=== PATIENT | female | born 1975 | race Caucasian/White ===

== ENCOUNTER → 2020-09-17 11:22 | Outpatient (BNVA) | payer MEDICAID, SELFPAY | PROVIDERS: Visit Provider Advanced Practice Midwife ==

== ENCOUNTER 2020-11-22 08:14 | Outpatient (REF) | payer MEDICAID, SELFPAY ==
--- NOTE | ~2020-11-22 | MM_ITS ---
EXAMINATION: MM SCREENING DIGITAL BREAST TOMOSYNTHESIS, BILATERAL CLINICAL INFORMATION: Screening. Asymptomatic. Benign right biopsy 05/14/2018 (fibroadenoma). The lifetime risk of breast cancer based on the Tyrer-Cuzick Model is 7%. COMPARISON: Mammography: 10/31/2019, 10/26/2018, 05/19/2018, 04/30/2018, 10/23/2017; bilateral targeted ultrasound 10/26/2018. TECHNIQUE: Digital breast tomosynthesis is performed in both the craniocaudal and mediolateral oblique views along with computer-aided detection (CAD). Synthesized 2D images are generated from the tomosynthesis. FINDINGS: There are scattered areas of fibroglandular density (ACR BI-RADS breast composition Category b). Parenchymal pattern and fibronodular changes are similar to prior studies. No developing density. No architectural abnormality or abnormal calcifications. There is small stable nodule mid outer left breast on CC view and known fibroadenoma with biopsy clip marker upper outer quadrant right breast. The axilla and skin contours are unremarkable. MM/MM tomosynthesis screening BI IMPRESSION: No significant changes from prior exams. ASSESSMENT: BI-RADS 2: Benign RECOMMENDATION: Routine annual mammography screening. This patient's information was entered into a reminder system with a target due date for their next mammogram.
== END 2020-11-22 08:15 | disposition home or self-care (01) ==
LOC: HO.MAMMO 08:14
PROVIDERS: Visit Provider Internal Medicine
DX: Z12.31 Encounter for screening mammogram for malignant neoplasm of breast (principal)
CPT/HCPCS: 77063; 77067

== ENCOUNTER 2021-09-19 11:10 | Outpatient (REF) | payer MEDICAID, SELFPAY ==
[2021-09-20 03:21] LABS: CT PCR NOT DETECTED (Not Detect.); NG PCR NOT DETECTED (Not Detect.)
[2021-09-20 10:54] LABS: BV Int Neg Control Negative (Negative); BV Int Pos Control Positive (Positive)
[2021-09-24 12:06] LABS: HPV mRNA E6/E7 rflx Not Detected (Not Detected)
== END 2021-09-19 11:11 | disposition home or self-care (01) ==
LOC: HO.LAB 11:10
PROVIDERS: Visit Provider Advanced Practice Midwife
DX: Z01.419 Encounter for gynecological examination (general) (routine) without abnormal findings (principal); Z20.2 Contact with and (suspected) exposure to infections with a predominantly sexual mode of transmission; Z79.899 Other long term (current) drug therapy
CPT/HCPCS: 87480; 87491; 87510; 87591; 87624; 87660; 88142

== ENCOUNTER 2021-11-28 13:37 | Outpatient (REF) | payer MEDICAID, SELFPAY ==
--- NOTE | ~2021-11-28 | MM_ITS ---
EXAMINATION: MM SCREENING DIGITAL BREAST TOMOSYNTHESIS, BILATERAL CLINICAL INFORMATION: Screening. Asymptomatic. Previous benign right breast biopsy. The lifetime risk of breast cancer based on the Tyrer-Cuzick Model is 8.2%. COMPARISON: Mammography: November 22, 2020 and studies dating back to September 12, 2016 TECHNIQUE: Digital breast tomosynthesis is performed in both the craniocaudal and mediolateral oblique views along with computer-aided detection (CAD). Synthesized 2D images are generated from the tomosynthesis. FINDINGS: The breasts are extremely dense, which lowers the sensitivity of mammography (ACR BI-RADS breast composition Category d). There is a stable parenchymal pattern of the right breast. Within the medial aspect of the left breast approximately 7 cm from the nipple there is a 1 cm partially circumscribed density containing some calcifications for which further evaluation with spot compression view is recommended. MM/MM tomosynthesis screening BI IMPRESSION: Left breast density for further evaluation. ASSESSMENT: BI-RADS 0: Incomplete - Need Additional Imaging Evaluation RECOMMENDATION: 1. Additional views of the left breast 2. Targeted ultrasound if warranted after review of the additional views. 3. Radiology department staff will contact the patient for additional imaging. This patient's information was entered into a reminder system with a target due date for their next mammogram.
== END 2021-11-28 13:38 | disposition home or self-care (01) ==
LOC: HO.MAMMO 13:37
PROVIDERS: Visit Provider Internal Medicine
DX: Z12.31 Encounter for screening mammogram for malignant neoplasm of breast (principal)
CPT/HCPCS: 77063; 77067

== ENCOUNTER 2021-12-30 14:05 | Outpatient (REF) | payer MEDICAID, SELFPAY ==
--- NOTE | ~2021-12-30 | MM_ITS ---
EXAMINATION: MM DIAGNOSTIC DIGITAL BREAST TOMOSYNTHESIS, LEFT US BREAST TARGETED, LEFT CLINICAL INFORMATION: Density with calcifications. COMPARISON: Mammography: 11/28/2021 and studies dating back to 09/12/2016. TECHNIQUE: Digital breast tomosynthesis is performed. 2D images are generated from the tomosynthesis. The following views are obtained: Spot compression craniocaudal and mediolateral oblique projections as well as spot magnification craniocaudal and 90 degree mediolateral views. FINDINGS: The breasts are extremely dense, which lowers the sensitivity of mammography (ACR BI-RADS breast composition Category d). Additional views demonstrated a well-circumscribed 1 cm density about the medial aspect of the left breast with some overlying calcifications which do not layer on 90 degree mediolateral view. Targeted ultrasound evaluation of the left breast demonstrates at the 10 o'clock position 7 cm from nipple a well-circumscribed simple-appearing cyst without definite calcifications being identified within its wall or within the cyst itself. There is smooth back wall with increased sound transmission. The cyst is wider than it is tall. No internal vascularity is present. Six-month followup left breast mammography with magnification views is recommended to ensure stability of calcifications. Results are discussed with the patient at time of visit. MM/MM tomosynthesis added views L IMPRESSION: Left breast density corresponds to a cyst. I cannot definitely say that the calcifications lie within the cyst and therefore six-month followup left breast study with magnification views is recommended. ASSESSMENT: BI-RADS 3: Probably Benign RECOMMENDATION: Diagnostic mammography in 6 months. This patient's information was entered into a reminder system with a target due date for their next mammogram.
== END 2021-12-30 14:06 | disposition home or self-care (01) ==
LOC: HO.MAMMO 14:05
PROVIDERS: PCP Internal Medicine; Visit Provider Advanced Practice Midwife
DX: R92.2 Inconclusive mammogram (principal); R92.1 Mammographic calcification found on diagnostic imaging of breast
CPT/HCPCS: 76642; 77061; 77065

== ENCOUNTER 2022-08-07 13:00 | Outpatient (REF) | payer MEDICAID, SELFPAY ==
--- NOTE | ~2022-08-07 | MM_ITS ---
EXAMINATION: MM DIAGNOSTIC DIGITAL BREAST TOMOSYNTHESIS, LEFT CLINICAL INFORMATION: Short interval follow-up left breast calcifications. No known family history breast cancer. TC score 8%. COMPARISON: Prior breast imaging exams, most recent 12/30/2021. TECHNIQUE: Digital breast tomosynthesis is performed in both the craniocaudal and mediolateral oblique views along with computer-aided detection (CAD). Synthesized 2D images are generated from the tomosynthesis. Additional magnification left CC and magnification left ML views are obtained. FINDINGS: There are scattered areas of fibroglandular density (ACR BI-RADS breast composition Category b). Parenchymal pattern is similar to prior exam. There is a known cyst central inner left breast mid depth. No interval mass or architectural abnormality or developing density. The axilla and skin contours are unremarkable. Left breast calcifications less than 5 in number for follow-up are similar to prior exam. They will be reassessed again at time of annual bilateral mammography, due in 6 months. Results are provided to the patient at time of visit by the technologist. MM/MM tomosynthesis diagnostic LT IMPRESSION: There are no significant changes from prior study. ASSESSMENT: BI-RADS 3: Probably Benign RECOMMENDATION: Diagnostic mammography at time of annual bilateral mammography, due in 6 months. This patient's information was entered into a reminder system with a target due date for their next mammogram.
== END 2022-08-07 13:01 | disposition home or self-care (01) ==
LOC: HO.MAMMO 13:00
PROVIDERS: PCP Internal Medicine; Visit Provider Internal Medicine
DX: R92.8 Other abnormal and inconclusive findings on diagnostic imaging of breast (principal)
CPT/HCPCS: 77061; 77065

== ENCOUNTER 2022-12-01 16:03 | Outpatient (REF) | payer MEDICAID, SELFPAY ==
--- NOTE | ~2022-12-01 | XR_ITS ---
EXAMINATION: XR CHEST CLINICAL INFORMATION: Cough. COMPARISON: Chest radiographs dated 11/20/2015. TECHNIQUE: 2 views of the chest were obtained. FINDINGS: No significant abnormality is noted involving the heart, lungs, mediastinum, bony thorax or soft tissues. XR/XR chest 2V IMPRESSION: No acute cardiopulmonary process.
== END 2022-12-01 16:04 | disposition home or self-care (01) ==
LOC: HO.HHCX 16:03
PROVIDERS: Visit Provider Registered Nurse
DX: R05.3 Chronic cough (principal)
CPT/HCPCS: 71046

== ENCOUNTER 2023-02-11 10:32 | Outpatient (REF) | payer MEDICAID, SELFPAY ==
[2023-02-11 11:16] LABS: MANUAL DIFF FLAG NO
[2023-02-11 11:30] LABS: Basophils Absolute Auto 0.1 X10*3/uL (0.0-0.2); Basophils Percent Auto 0.9 % (0-2); Eosinophils Absolute Auto 0.1 X10*3/uL (0.0-0.4); Eosinophils Percent Auto 1.8 % (0-4); Hematocrit 35.7 % (37.0-47.0); Hemoglobin 11.8 g/dl (12.0-16.0); Imm Gran Abs Auto 0.03 X10*3/uL (0.00-0.03); Imm Gran Pct Auto 0.4 % (0.0-0.4); Lymphocytes Absolute Auto 1.9 X10*3/uL (1.2-4.9); Mean Corpuscular HGB Conc 33.1 g/dl (31.0-35.0); Mean Corpuscular Hemoglobin 29.1 pg (27.0-33.0); Mean Corpuscular Volume 87.9 fL (80.0-98.0); Mean Platelet Volume 10.5 fL (9.4-12.3); Monocytes Absolute Auto 0.7 X10*3/uL (0.1-1.2); Monocytes Percent Auto 8.8 % (2-11); Neutrophils Absolute Auto 4.8 x10*3/uL (2.0-8.3); Neutrophils Percent Auto 63.1 % (45-73); Platelet Count 318 X10*3/uL (160-400); Red Blood Count 4.06 X10*6/uL (4.20-5.50); Red Cell Distribution Width 13.6 % (11.0-16.0); White Blood Count 7.6 X10*3/uL (4.8-10.8)
[2023-02-11 11:44] LABS: Estimated Average Glucose 103 mg/dL; Hemoglobin A1c % 5.2 % (<6.0)
[2023-02-11 12:30] LABS: Alanine Aminotransferase 11 U/L (0-31); Alkaline Phosphatase 56 U/L (39-117); Anion Gap 9 (12-20); Aspartate Amino Transferase 13 U/L (5-31); Bilirubin Direct 0.2 mg/dL (0.0-0.5); Bilirubin Total 0.5 mg/dL (0.0-1.0); Blood Urea Nitrogen 10 mg/dL (9-16); Calcium 8.9 mg/dL (8.4-10.2); Carbon Dioxide 25 mmol/L (22-29); Chloride 108 mmol/L (96-108); Cholesterol 213 mg/dL (<200); Estimated Glomerular Filt Rate > 60; Glucose Random 92 mg/dL (60-115); HDL Cholesterol 83 mg/dL (>40); LDL Cholesterol Calculated 118 mg/dL (<100); Potassium 3.5 mmol/L (3.3-5.1); Sodium 138 mmol/L (135-145); Total Protein 7.5 g/dL (6.5-8.0); Triglycerides 61 mg/dL (<150)
[2023-02-11 12:35] LABS: Vitamin D 25-OH Total 32.6 ng/mL (>30)
[2023-02-11 12:48] LABS: Vitamin B12 446 pg/mL (200-900)
== END 2023-02-11 10:33 | disposition home or self-care (01) ==
LOC: HO.HHCL 10:32
PROVIDERS: Visit Provider Internal Medicine
DX: Z00.00 Encounter for general adult medical examination without abnormal findings (principal)
CPT/HCPCS: 36415; 80048; 80061; 80076; 82306; 82607; 83036; 85025

== ENCOUNTER 2023-02-11 12:07 | Outpatient (REF) | payer MEDICAID, SELFPAY ==
--- NOTE | ~2023-02-11 | MM_ITS ---
EXAMINATION: MM DIAGNOSTIC DIGITAL BREAST TOMOSYNTHESIS, BILATERAL CLINICAL INFORMATION: Follow-up several calcifications associated with an oval cyst in the left breast at the 10:00 axis seen on previous examinations to establish one-year stability. COMPARISON: Mammography: 08/07/2022, 12/30/2021 ultrasound left breast, 12/30/2021 mammography left breast, 11/28/2021, 11/22/2020, and dating back to 2018. TECHNIQUE: Digital breast tomosynthesis is performed in both the craniocaudal and mediolateral oblique views along with computer-aided detection (CAD). Synthesized 2D images are generated from the tomosynthesis. In addition, spot magnification views of the left breast were performed in the CC and ML projections. FINDINGS: The breasts are heterogeneously dense, which may obscure small masses (ACR BI-RADS breast composition Category c). There is a stable oval cyst in the 10:00 axis of the left breast with approximately 4 punctate associated calcifications. These were not visible on ultrasound. There are likely lie in the wall of the cyst.They do not meet biopsy threshold and they have a stable benign appearance, having been unchanged over one years time. There is a biopsy clip within a mass in the superior outer right breast, with histology yielding fibroadenoma. No suspicious grouped calcifications, suspicious masses, or suspicious areas of architectural distortion are identified in either breast. MM/MM tomosynthesis diagnostic BI IMPRESSION: There are no significant changes from prior study. No findings suspicious for malignancy in either breast Stable benign findings. Probably benign findings related to benign appearing calcifications overlying a cyst in the left breast at 10:00. These have been stable over one year. Recommend 1 year interval follow-up to left breast diagnostic mammogram assure stability to include magnification views of the left breast. This will establish two-year stability and benignity. ASSESSMENT: BI-RADS BI-RADS 3 - Probably benign finding(s) - 12 month follow-up suggested RECOMMENDATION: 12 month diagnostic follow up Results were provided to the patient at time of visit by the technologist. This patient's information was entered into a reminder system with a target due date for their next mammogram.
== END 2023-02-11 12:08 | disposition home or self-care (01) ==
LOC: HO.MAMMO 12:07
PROVIDERS: PCP Internal Medicine; Visit Provider Advanced Practice Midwife
DX: R92.8 Other abnormal and inconclusive findings on diagnostic imaging of breast (principal); R92.1 Mammographic calcification found on diagnostic imaging of breast
CPT/HCPCS: 77062; 77066

== ENCOUNTER → 2023-02-11 13:00 | Outpatient (BNV) | payer MEDICAID, SELFPAY | PROVIDERS: PCP Internal Medicine; Visit Provider Radiology Diagnostic Radiology | DX: R92.1 Mammographic calcification found on diagnostic imaging of breast (principal); N60.09 Solitary cyst of unspecified breast | CPT/HCPCS: 77062; 77066 ==

== ENCOUNTER 2023-03-18 12:49 | Outpatient (AMB) | payer MEDICAID, SELFPAY ==
--- NOTE | 2023-03-18 12:59 | A.OFFVIS_ITS ---
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 Intake Note: heavy and painful menses, a lot of blood clots, PCP let her know she is anemic Psychiatric Clinician Required: Yes Psychiatric Clinician Language: Macedonian Information Interpreted: non-clinical & clinical Vice President Regulatory: Vice President Regulatory Present (Yolande) Allergies ciprofloxacin [Cipro] Allergy (Unknown, Verified 03/18/23 13:03) Unknown tramadol Allergy (Unknown, Verified 03/18/23 13:03) Unknown meperidine [Demerol] Adverse Reaction (Unknown, Verified 03/18/23 13:03) vomiting Tramadol & Dietary Manage Prod Allergy (Unknown, Uncoded 03/18/23 13:03) Unknown Medication List - Last Reconciled 03/18/23 by Jessica Cardenas CNM albuterol sulfate 90 mcg/actuation 1 inh inhalation QID cholecalciferol (vitamin D3) 50 mcg PO DAILY diclofenac sodium 1% 2 grams topical fluticasone propion-salmeterol 115-21 mcg/actuation (Advair HFA) 2 puffs inhalation BID ibuprofen 800 mg PO TID ketoconazole 2% topical 2XW loratadine 10 mg PO DAILY lorazepam 0.5 mg PO DAILY PRN metronidazole 500 mg PO BID 7 days montelukast 10 mg PO DAILY topiramate (Topamax) 50 mg PO BID triamcinolone acetonide 0.1% topical BID Is last menstrual period known: Yes Last menstrual period: 03/13/23 Post menopausal: No 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 She is not having any problems at all she gets them every 6 month mammograms because of something in her breast but she just had 1 in February and it was fine. Her periods have been heavier with clots and she said her primary care provider told her she had anemia but the hemoglobin was 11 point something she told her t o take iron but she is not interested in taking it because it makes her constipated and she would rather do it with eating healthy. Her doctor gave her a cream for the rash on her breast on Thursday that is clotrimazole betamethasone cream she is using it twice a day and it is getting better. [facility] Medical History Back pain Fibromyalgia Depression Anxiety Asthma Vertigo Carpal tunnel syndrome Hx of migraines Surgical History (Updated 03/18/23 @ 13:05 by YEIMI Carter) Hx of appendectomy Hx of section History of tubal ligation History of ear surgery Family History Mother HTN (hypertension) Diabetes Breast cancer Father HTN (hypertension) Maternal Aunt Ovarian cancer Cervical cancer Social History Alcohol intake: never Gender identity: Female Female Reproductive History Menstrual Age of Menarche: 14 Duration of menses: 3-5 days Date of last menstrual period: 03/13/23 control method: other (tubal ligation) Total pregnancies: 3 Full term: 2 Number of Living Children: 2 Ab spontaneous: 1 Date of last pap smear: 09/20/21 (negative) Date of Mammogram: 02/11/23 Physical Exam Vital Signs: Last Vital Signs BP 122/76 03/18/23 13:00 BMI result Body Mass Index 29.9 Const General: healthy appearing, comfortable, no acute distress, well developed and alert Nutritional Appearance: average body habitus Orientation/consciousness: patient oriented x3 Limitations: no limitations HEENT Head: Yes normocephalic Neck Neck: Yes normal visual inspection Chest Other: Quarter-sized circular reddened rash on left breast at 9 to 10:00 o'clock Chest palpation & inspection: normal inspection of the chest Breast/axilla inspection: normal inspection of the breasts and normal inspection of the axillae Breast/axilla palpation: normal palpation of the breasts and normal palpation of the axillae Resp Effort & Inspection: normal respiratory effort GI Inspection: Yes normal to inspection, No Abdominal wall edema and No distended Palpation (GI): Soft to palpation and nontender Other: Vagina pink and moist cervix appears pink and nulliparous with clear mucus. Uterus is small anteverted mobile nontender good tone with Kegel adnexa not enlarged. General: Yes bladder normal to palpation External Female Exam: normal external appearance and normal appearance of the urethra Speculum Exam - Vagina: normal appearance of the vagina, normal palpation and normal vaginal discharge Speculum Exam - Cervix: normal appearance of the cervix, normal palpation and nontender Bimanual exam- vagina & uterus: normal bimanual exam, normal palpation, uterine size normal, bladder normal to palpation, consistency normal, normal palpation, uterine mobility normal, uterine shape normal, No Cervical tenderness present, non-tender and no cervical motion tenderness Bimanual Exam- Adnexa, other: normal adnexae, no masses, normal and No adnexal tenderness Neuro General: patient oriented x3 Assessment & Plan Assessment & Plan (1) Breast calcifications on mammogram: Code(s): R92.1 - Mammographic calcification found on diagnostic imaging of breast (2) Breast cancer screening other than mammogram: Code(s): Z12.39 - Encounter for other screening for malignant neoplasm of breast (3) Well woman exam with routine gynecological exam: Code(s): Z01.419 - Encounter for gynecological examination (general) (routine) without abnormal findings (4) Cervical cancer screening: Comment: pap done 09/19/21= negative with negative HPV Code(s): Z12.4 - Encounter for screening for malignant neoplasm of cervix Plan -----Discussed in this visit the following: healthy balanced diet, regular and consistent exercise, getting recommended health screens, doing the best she can for her particular health concerns, kegel exercises, pap smear screening and followup recommendations, mammography screening and SBE, normal changes in cycles in her life stage--- . Pap smear not done as it is not doing her last 1 was negative and she is not worried about any infections and has no symptoms. She does not want to take the iron in I did review the option of perhaps a Mirena IU S to make her periods less heavy and might even make them go way but she is not interested in anything that would have potentially any side effects she pretty much sticks to taking medicines only if it is absolutely absolutely necessary she would rather make changes to her diet and what she is doing to make her health better. I also told her about ablation surgery but that she would probably have to try the Mirena 1st for insurance to pay for. I gave her the brochure and she will read it but she is probably not interested in it. Coding Level of Care Code Est Pt Prev Care 40-64y(91013) Diagnoses Breast calcifications on mammogram R92.1 Breast cancer screening other than mammogram Z12.39 Well woman exam with routine gynecological exam Z01.419 Cervical cancer screening Z12.4
[2023-03-18 13:00] VITALS: BP 122/76; BMI 29.9
== END 2023-03-18 13:57 | disposition home or self-care (01) ==
LOC: HO.HWS 12:50
PROVIDERS: PCP Internal Medicine; Visit Provider Advanced Practice Midwife
DX: R92.1 Mammographic calcification found on diagnostic imaging of breast (principal); Z12.39 Encounter for other screening for malignant neoplasm of breast; Z01.419 Encounter for gynecological examination (general) (routine) without abnormal findings; Z12.4 Encounter for screening for malignant neoplasm of cervix
CPT/HCPCS: 99396

== ENCOUNTER → 2023-03-18 12:49 | Outpatient (BNVA) | payer MEDICAID, SELFPAY | PROVIDERS: PCP Internal Medicine; Visit Provider Advanced Practice Midwife | DX: Z01.419 Encounter for gynecological examination (general) (routine) without abnormal findings (principal); Z12.4 Encounter for screening for malignant neoplasm of cervix; Z12.39 Encounter for other screening for malignant neoplasm of breast; R92.1 Mammographic calcification found on diagnostic imaging of breast | CPT/HCPCS: 99396 ==

== ENCOUNTER 2024-02-16 10:24 | Outpatient (REF) | payer MEDICAID, SELFPAY ==
--- NOTE | ~2024-02-16 | MM_ITS ---
EXAMINATION: MM DIAGNOSTIC DIGITAL BREAST TOMOSYNTHESIS, BILATERAL CLINICAL INFORMATION: 1 year follow-up to establish two-year stability and benignity of left breast calcifications at the 10:00 axis, mid to posterior depth associated with a 9 mm cyst. Due for yearly. COMPARISON: Mammography: 02/11/2023, 08/07/2022, 12/30/2021(BI-RADS 3), 11/28/2021 (BI-RADS 0), 11/22/2020, and dating back to 2018. 12/30/2021 ultrasound left breast. TECHNIQUE: Digital breast tomosynthesis is performed in both the craniocaudal and mediolateral oblique views along with computer-aided detection (CAD). Synthesized 2D images are generated from the tomosynthesis. In addition to standard views, 2-D spot magnification left CC and LM views were obtained of the left breast. FINDINGS: The breasts are heterogeneously dense, which may obscure small masses (ACR BI-RADS breast composition Category c). Previously seen 9 mm oval cyst 10:00 axis of left breast with approximately 4 punctate associated calcifications is no longer definitely identified on the current exam. 3 remaining extremely faint punctate calcifications are present at the site of the previously identified cyst. There have been no aggressive changes over 2 years, and these calcifications are benign. Previously biopsied superior outer right breast mass, yielding fibroadenoma, with internal butterfly biopsy clip. This is benign. No suspicious grouped calcifications, suspicious masses, or areas of architectural distortion are identified in either breast. Parenchymal pattern is stable from the prior exams. No skin or axillary abnormalities. MM/MM tomosynthesis diagnostic BI IMPRESSION: There are no findings in either breast suspicious for malignancy. A few extremely faint punctate calcifications left breast 10:00 axis benign, having no aggressive changes over 2 years. The associated cyst is no longer identified. No further follow-up recommended. Recommend the patient resume routine annual screening mammography. ASSESSMENT: BI-RADS BI-RADS 2 - Benign Findings RECOMMENDATION: 1 year F/U Results were provided to the patient at time of visit by the technologist. This patient's information was entered into a reminder system with a target due date for their next mammogram. Electronically signed by: Fernando Canela MD 02/16/2024 12:06 PM EDT
== END 2024-02-16 10:25 | disposition home or self-care (01) ==
LOC: HO.MAMMO 10:24
PROVIDERS: PCP Internal Medicine; Visit Provider Internal Medicine
DX: R92.1 Mammographic calcification found on diagnostic imaging of breast (principal)
CPT/HCPCS: 77062; 77066

== ENCOUNTER → 2024-02-16 11:00 | Outpatient (BNV) | payer MEDICAID, SELFPAY | PROVIDERS: PCP Internal Medicine; Visit Provider Radiology Diagnostic Radiology | DX: R92.1 Mammographic calcification found on diagnostic imaging of breast (principal) | CPT/HCPCS: 77062; 77066 ==

== ENCOUNTER 2024-03-21 13:53 | Outpatient (AMB) | payer MEDICAID, SELFPAY ==
--- NOTE | 2024-03-21 13:58 | A.OFFVIS_ITS ---
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 Required: No Allergies ciprofloxacin [Cipro] Allergy (Unknown, Verified 03/18/23 13:03) Unknown tramadol Allergy (Unknown, Verified 03/18/23 13:03) Unknown meperidine [Demerol] Adverse Reaction (Unknown, Verified 03/18/23 13:03) vomiting Tramadol & Dietary Manage Prod Allergy (Unknown, Uncoded 03/18/23 13:03) Unknown Medication List - Last Reconciled 03/21/24 by Jessica Cardenas CNM albuterol sulfate 90 mcg/actuation 1 inh inhalation QID ibuprofen 800 mg PO TID norethindrone (contraceptive) 0.35 mg PO DAILY Is last menstrual period known: Yes Last menstrual period: 03/11/24 Post menopausal: No Patient : No HPI HPI SURGICAL ASSIST annual exam: Details: Patient is here for jig hand annual exam she had very heavy crampy periods and was investigating options last year and possibility of a Mirena IU S was discussed she was not interested in that. Please see previous discussions She sought a 2nd opinion at [facility]. They did a CT scan and ultrasound which documented multiple fibroids the largest of which was 3.7 cm. They also did a Pap smear which showed ANNA/S with negative HPV so she had a biopsy done 02/12/2024 that has just come back negative. She said that they wanted to take her uterus out but she did not want that so instead they gave her norethindrone control pills but she had not started them yet because she wanted to talk to me 1st as a 2nd opinion.. Her last periods started 03/11/2024 she has a tubal ligation for control. [facility] Medical History (Updated 03/21/24 @ 16:24 by Jessica Cardenas CNM) Back pain Fibromyalgia Depression Anxiety Asthma Vertigo Carpal tunnel syndrome Hx of migraines Surgical History (Updated 03/18/23 @ 13:05 by YEIMI Carter) Hx of appendectomy Hx of section History of tubal ligation History of ear surgery Family History Mother HTN (hypertension) Diabetes Breast cancer Father HTN (hypertension) Maternal Aunt Ovarian cancer Cervical cancer Social History Alcohol intake: never Patient : No Gender identity: Female Female Reproductive History Menstrual Age of Menarche: 14 Date of last menstrual period: 03/11/24 History of abnormal pap smear: No Physical Exam Vital Signs: Last Vital Signs BP 102/60 03/21/24 13:59 BMI result Body Mass Index 31.7 Const General: healthy appearing, comfortable, no acute distress, well developed and alert Nutritional Appearance: average body habitus Orientation/consciousness: patient oriented x3 Limitations: no limitations HEENT Head: Yes normocephalic Neck Neck: Yes normal visual inspection Chest Chest palpation & inspection: normal inspection of the chest Breast/axilla inspection: normal inspection of the breasts and normal inspection of the axillae Breast/axilla palpation: normal palpation of the breasts and normal palpation of the axillae Resp Effort & Inspection: normal respiratory effort GI Inspection: Yes normal to inspection, No Abdominal wall edema and No distended Palpation (GI): Soft to palpation and nontender Other: Vagina pink and moist clear healthy fertile type mucus cervix multiparous smooth healthy appearing uterus midposition not especially enlarged mobile nontender good tone with Kegel General: Yes bladder normal to palpation External Female Exam: normal external appearance and normal appearance of the urethra Speculum Exam - Vagina: normal appearance of the vagina, normal palpation and normal vaginal discharge Speculum Exam - Cervix: normal appearance of the cervix, normal palpation and nontender Bimanual exam- vagina & uterus: normal bimanual exam, normal palpation, uterine size normal, bladder normal to palpation, consistency normal, normal palpation, uterine mobility normal, uterine shape normal, No Cervical tenderness present, non-tender and no cervical motion tenderness Bimanual Exam- Adnexa, other: normal adnexae, no masses, normal and No adnexal tenderness Neuro General: patient oriented x3 Results Reviewed Results Reviewed: Name: Nadiya Mauricio Age/Sex: 46/F Attending: Jessica Cardenas CNM : 1975 Submitted by: Jessica Cardenas CNM Copies to: MR #: [id number] Status: DEP REF Collected: 09/19/21 Location: .LAB Received: 09/20/21 Interpretation Satisfactory for evaluation. Negative for intraepithelial lesion or malignancy. HPV mRNA E6/E7: NOT DETECTED This assay detects E6/E7 viral messenger RNA (mRNA) from 14 high-risk HPV types (16, 18, 31, 33, 35, 39, 45, 51, 52, 56, 58, 59, 66, 68) HPV testing performed by [facility], [place], [place]. See reference laboratory pion of the EMR for entire report. Clinical Information LMP: 08/29/21 Previous PAP test: 2017, WNL Material Received ThinPrep-Cervical Electronically Signed By: CHRISTOPHER Mcdowell (ASCP) 09/27/21 1338 The Pap Test is a screening procedure with the inherent possibility of both false negative and false positive results. Results should be interpreted in the context of historic and current clinical findings. Reliability of the Pap Test is enhanced by performing the test on a regular repetitive basis. Patient: Nadiya Mauricio Age/Sex: 46/F MR#: [id number] Page 1 of 1 Of visits and tests labs and ultrasounds and CT scans done at [facility]. She was seen there to evaluate her heavy periods and fibroids. She had ultrasounds and CT scans showing fibroids there was a discussion per the patient about hysterectomy but she did not not want that and they gave her control pills norethindrone but she has not started them until she reviews them with me today In addition she had Pap smear done in November and it showed TREY with negative HPV and she subsequently had a biopsy that was completely negative on 02/12/2024. Assessment & Plan Assessment & Plan (1) Cervical cancer screening: Comment: pap done 09/19/21= negative with negative HPV; 11/2023 Pap at [facility] w TREY- colpo/bx 02/12/2024 at [facility] negative. Code(s): Z12.4 - Encounter for screening for malignant neoplasm of cervix Category: Medical (2) Well woman exam with routine gynecological exam: Code(s): Z01.419 - Encounter for gynecological examination (general) (routine) without abnormal findings Category: Medical (3) Fibroids: Comment: Evaluated by ultrasound and CT scan at [facility] 2023 the largest is 3.7 cm., decision against surgery was made. 03/21/2024 patient will try norethindrone that was given to her by [facility], start with next menses. 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 She may need a Pap smear next year secondary to her last Pap smear this year at [facility] was TREY, though there was negative HPV her colposcopy was negative . She thinks she will start the control pills as I instructed. I shared that it would be best for her to double check with the providers who ordered pills so they know if they are helpful to her and she may get the refills there but she can also get refills with us but just be sure to bring the pill pack it with her so she know that that is what she is on if she starts the (no rethindrone 35 mg). I reviewed the patient's records that she brought with her in great detail and she said she evaluated the explanation of everything the control pills would shrink the fibroids but they may may her periods less painful and and less abundant and for that she will try them she was not interested in the Mirena I propose last year.. Coding Level of Care Code Est Pt Prev Care 40-64y(23455) Diagnoses Cervical cancer screening Z12.4 Well woman exam with routine gynecological exam Z01.419 Fibroids D21.9
[2024-03-21 13:59] VITALS: BP 102/60; BMI 31.7
== END 2024-03-21 15:53 | disposition home or self-care (01) ==
PROVIDERS: PCP Internal Medicine; Visit Provider Advanced Practice Midwife
DX: Z12.4 Encounter for screening for malignant neoplasm of cervix (principal); Z01.419 Encounter for gynecological examination (general) (routine) without abnormal findings; D21.9 Benign neoplasm of connective and other soft tissue, unspecified
CPT/HCPCS: 99396

== ENCOUNTER → 2024-03-21 13:53 | Outpatient (BNVA) | payer MEDICAID, SELFPAY | PROVIDERS: PCP Internal Medicine; Visit Provider Advanced Practice Midwife | DX: Z01.419 Encounter for gynecological examination (general) (routine) without abnormal findings (principal); D21.9 Benign neoplasm of connective and other soft tissue, unspecified | CPT/HCPCS: 99396 ==

== ENCOUNTER 2025-02-28 10:46 | Outpatient (REF) | payer MEDICAID, SELFPAY ==
--- OUTSIDE RECORDS SUMMARY | 2025-02-28 13:03 | XMS_ITS | Encounter Summary ---
Author Organization [employer] Address [address] [place] [address] [address] [place] [address] Care Team Providers Care Magazine Grinder Loader Name Role Phone Veronika Blanco MD Primary Care Provide r Reason for Visit * Reason Onset Date Comments Med Refill 10/11/2024 Encounter Details Date Type Department Care Team (Late st Contact Info) Description 10/11/2024 Refill [facility] [address] [place] [address] [facility] [address] [place] [address] Seborrheic dermatitis Social History Tobacco Use Types Packs/Day Years Used Date Smoking Tobacco: Former Cigarettes Passive Smoke Exposure: Never Smokeless Tobacco: Never Alcohol Use Standard Drinks/Week Comments Never 0 (1 standard drink = 0.6 oz pur e alcohol) Depression Answer Date Recorded Patient Health Questionnaire-9 Score 0 03/17/2024 Patient Health Questionnaire-9 Score 0 03/17/2024 Last PHQ-9: Questionnaire Data Not on file 1 05/17/2023 Housing Stability Answer Date Recorded What is your housing situation today? I have jose pruitt 09/02/[address] you li ve. Do you have problems with any of the following? None of the above 09/02/2023 Food Insecurity Answer Date Recorded Within the past 12 months, y ou worried that your food would run out before you got money to buy more: Never True 09/02/2023 Within the past 12 months,th e food you bought just didn't last and you didn't have enough money to get more: Never True Transportation Answer Date Recorded In the past 12 months, has l ack of transportation kept you from medical appts, meetings, work or from getting things needed for daily living? No 09/02/2023 Utilities Answer Date Recorded In the past 12 months, has t he electric, gas, oil or water company threatened to shut off services in your home? No 09/02/2023 Depression Answer Date Recorded Patient Health Questionnaire-2 Score 0 03/17/2024 Comments Unknown Sex and Gender Information Value Date Recorded Sex Assigned at Female 03/10/2022 10:21 AM EDT Legal Sex Female 10:21 AM EDT Gender Identity Female 03/10/2022 10:21 AM EDT Sexual Orientation Choose not to disclose 2021 10:21 AM EDT documented as of this encounter Plan of Treatment Upcoming Encounters Date Type Department Care Team (Late st Contact Info) Description 04/03/2025 2:45 PM EST Office Visit [facility] [address] [place] [address] Veronika Blanco MD [address] [place] [address] documented as of this encounter Visit Diagnoses Diagnosis Seborrheic dermatitis Unspecified seborrheic dermatitis documented in this encounter Additional Health Concerns Assessment Noted Time PHQ-9 Depression Total Score: 0 03/17/20 24 9:55 AM EST documented as of this encounter Care Teams Magazine Grinder Loader Relationship Specialty Start Date End Date Veronika Blanco MD [address] [place] [id number] PCP - General Family Medicine 02/28/20 documented as of this encounter
--- OUTSIDE RECORDS SUMMARY | 2025-02-28 13:04 | XMS_ITS | Encounter Summary ---
Author Organization [employer] Address [address] [place] [address] [address] [place] [address] Care Team Providers Care Snailer Name Role Phone Veronika Blanco MD Primary Care Provide r Reason for Visit * Reason Comments Med Refill Encounter Details Date Type Department Care Team ([facility] st Contact Info) Description 08/05/2023 Refill [facility] [address] [place], [place] [phone] Veronika Blanco MD [address] [place], [place] [phone] Seborrheic dermatitis Social History Tobacco Use Types Packs/Day Years Used Date Smoking Tobacco: Former Cigarettes Smokeless Tobacco: Never Alcohol Use Standard Drinks/Week Comments Never 0 (1 standard drink = 0.6 oz pur e alcohol) Depression Answer Date Recorded Patient Health Questionnaire-9 Score 0 09/24/2022 Housing Stability Answer Date Recorded What is your housing situation today? I have jose pruitt 03/11/[address] you li ve. Do you have problems with any of the following? None of the above 03/11/2023 Food Insecurity Answer Date Recorded Within the past 12 months, y ou worried that your food would run out before you got money to buy more: Never True 03/11/2023 Within the past 12 months,th e food you bought just didn't last and you didn't have enough money to get more: Never True 05/2022 Transportation Answer Date Recorded In the past 12 months, has l ack of transportation kept you from medical appts, meetings, work or from getting things needed for daily living? No 03/11/2023 Utilities Answer Date Recorded In the past 12 months, has t he electric, gas, oil or water company threatened to shut off services in your home? No 03/11/2023 Depression Answer Date Recorded Patient Health Questionnaire-2 Score 0 09/24/2022 Comments Unknown Sex and Gender Information Value [...] Description 04/03/2025 2:45 PM EST Office Visit [facility] [address] [place] [phone] Veronika Blanco MD [address] [place] [phone] documented as of this encounter Visit Diagnoses Diagnosis Seborrheic dermatitis Unspecified seborrheic dermatitis documented in this encounter Additional Health Concerns Assessment Noted Time PHQ-9 Depression Total Score: 0 09/25/19 23 10:07 AM EDT documented as of this encounter Care Teams Snailer Relationship Specialty Start Date End Date Veronika Blanco MD [address] [place] [phone] PCP - General Family Medicine 02/28/20 documented as of this encounter
--- OUTSIDE RECORDS SUMMARY | 2025-02-28 13:04 | XMS_ITS | Encounter Summary ---
Author Organization [employer] Address [address] [facility] [address] [place] [address] Care Team Providers Care Agile Developer Name Role Phone Veronika Blanco MD Primary Care Provide r Reason for Visit * Reason Onset Date Comments Med Refill 09/09/2023 Encounter Details Date Type Department Care Team (Late st Contact Info) Description 09/09/2023 Refill [facility] [address] [place], [place] [phone] Veronika Blanco MD [address] [place], [place] [phone] Social History Tobacco Use Types Packs/Day Years [...] Description 04/03/2025 2:45 PM EST Office Visit [facility] [address] [place] [phone] Veronika Blanco MD [address] [place] [phone] documented as of this encounter Visit Diagnoses Not on filedocumented in this encounter Additional Health Concerns Assessment Noted Time PHQ-9 Depression Total Score: 0 09/25/19 23 10:07 AM EDT documented as of this encounter Care Teams Agile Developer Relationship Specialty Start Date End Date Veronika Blanco MD [address] [place] [phone] PCP - General Family Medicine 02/28/20 documented as of this encounter
--- OUTSIDE RECORDS SUMMARY | 2025-02-28 13:04 | XMS_ITS | Clinical Summary ---
Author Organization [employer] Address [address] [facility] 7[address] [place] [address] Care Team Providers Care Ldr Nurse Name Role Phone Veronika Blanco MD Primary Care Provide r Allergies Active Allergy Reactions Criticality Noted Date Comments Ciprofloxacin 02/14/2019 Other reaction(s): shortness of breath, shortness of breath Meperidine 11/21/2011 Other reaction(s): vomiting Tramadol 02/14/2019 Other reaction(s): faints Medications DULoxetine (Cymbalta) [address] capsuleIndicati ons:Fibromyalgi a Take 1 capsule (30 mg) by mouth 2 times daily. Do not crush or chew. 60 capsule 1 07/30/19 23 Active famotidine (Pepcid) 20 MG tabletIndicatio ns:Heartburn Take 1 tablet (20 mg) by mouth 2 times daily. 60 tablet 11 09/25/19 23 Active EPINEPHrine (Epipen) 0.3 MG/0.3ML injection syringe INJECT INTO THE MUSCLE NEEDED 11/08/19 22 Active fluticasone (Flonase) 50 MCG/ACT nasal spray SHAKE LIQUID AND USE 2 SPRAYS IN EACH NOSTRIL EVERY DAY 08/25/19 23 Active cetirizine (ZyrTEC) 10 MG tabletIndicatio ns:Seasonal allergies Take 1 tablet (10 mg) by mouth in the morning. 30 tablet 2 10/30/19 23 Active benzonatate (Tessalon Perles) 100 MG capsuleIndicati ons:Chronic cough Take 1 capsule (100 mg) by mouth if needed in the morning, at noon, and at bedtime for cough. Do not crush or chew. 60 capsule 12/02/19 23 Active triamcinolone (Kenalog) 0.1 % creamIndication s:Seborrheic dermatitis APPLY TOPICALLY IN THE MORNING AND AT BEDTIME NEEDED FOR PAIN AND SWELLING 30 g 1 04/25/20 24 Active clotrimazole-be tamethasone (Lotrisone) creamIndication s:Rash and nonspecific skin eruption APPLY TOPICALLY TO THE AFFECTED AREA TWICE DAILY 45 g 2 10/13/19 25 Active Acetaminophen Extra Strength 500 MG tablet TAKE 2 TABLETS BY MOUTH EVERY 8 HOURS 40 tablet 1 10/13/19 25 Active triamcinolone (Kenalog) 0.1 % ointmentIndicat ions:Seborrheic dermatitis APPLY TOPICALLY TO THE AFFECTED AREA TWICE DAILY 30 g 1 10/13/19 25 Active ketoconazole (NIZOral) 2 % shampooIndicati ons:Seborrheic dermatitis APPLY TOPICALLY 2 TIMES A WEEK 240 mL 1 10/13/19 25 Active Diclofenac Sodium 1 % gelIndications: Right-sided chest pain Apply 1 Application topically 1 (one) time per week. APPLY 2 GRAMS TOPICALLY IF NEEDED IN THE MORNING AND AT BEDTIME FOR PAIN 100 g 1 10/13/19 25 Active fluocinolone ([place]-Smoothe) 0.01 % external oilIndications: Seborrheic dermatitis APPLY TOPICALLY TO SCALP TWICE A WEEK BEFORE WASHING HAIR (LEAVE ON SCALP OVERNIGHT) 118.28 mL 1 10/13/19 25 Active ibuprofen 800 MG tablet TAKE 1 TABLET BY MOUTH THREE TIMES DAILY WITH FOOD 30 tablet 10/13/19 25 Active naphazoline-phe niramine (Naphcon-A) 0.025-0.3 % ophthalmic solution INSTILL 2 DROPS IN AFFECTED EYE(S) TWICE DAILY NEEDED 15 mL 12/17/19 25 Active albuterol (2.5 MG/3ML) 0.083% nebulizer solutionIndicat ions:Moderate persistent asthma with acute exacerbation USE 1 VIAL VIA NEBULIZER EVERY 6 HOURS NEEDED FOR WHEEZING OR SHORTNESS OF BREATH 90 mL 2 02/21/20 25 Active albuterol (Ventolin HFA) 108 (90 Base) MCG/ACT inhalerIndicati ons:Moderate persistent asthma with acute exacerbation INHALE 1 TO 2 PUFFS BY MOUTH EVERY 4 TO 6 HOURS NEEDED 18 g 1 02/21/20 25 Active montelukast (Singulair) 10 MG tabletIndicatio ns:Moderate persistent asthma with acute exacerbation TAKE 1 TABLET BY MOUTH EVERY EVENING 90 tablet 1 02/21/20 Active fluticasone-donya meterol (Advair) 230-21 MCG/ACT inhalerIndicati ons:Moderate persistent asthma with acute exacerbation Inhale 2 puffs in the morning and at bedtime. Rinse mouth with water after use to reduce aftertaste and incidence of candidiasis. Do not swallow. 12 g 11 02/21/20 25 2025 Active Advair HFA 115-21 MCG/ACT inhaler Inhale 2 puffs 2 times daily. 07/19/19 23 2024 Discontinued montelukast (Singulair) 10 MG tablet TAKE 1 TABLET BY MOUTH EVERY EVENING 90 tablet 1 08/19/19 24 2024 Discontinued(R eorder (will not trigger notification to Pharmacy)) albuterol (2.5 MG/3ML) 0.083% nebulizer solution USE 1 VIAL VIA NEBULIZER EVERY 6 HOURS NEEDED FOR WHEEZING OR SHORTNESS OF BREATH 90 mL 2 10/13/19 25 2024 Discontinued(R eorder (will not trigger notification to Pharmacy)) albuterol (Ventolin HFA) 108 (90 Base) MCG/ACT inhaler INHALE 1 TO 2 PUFFS BY MOUTH EVERY 4 TO 6 HOURS NEEDED 18 g 1 10/13/19 25 2024 Discontinued(R eorder (will not trigger notification to Pharmacy)) predniSONE (Deltasone) 20 MG tabletIndicatio ns:Moderate persistent asthma with acute exacerbation Take 2 tablets (40 mg) by mouth Once per day for 5 days. 10 tablet 02/21/20 25 2024 Active Problems Problem Noted Date Diagnosed Date Stress incontinence of urine 02/20/2025 Assessment & Plan (02/20/2025 9:42 AM EDT): I will prescribe for patient pull-ups size large I will refer her to urology Fibroid uterus 02/20/2025 Assessment & Plan (02/20/2025 9:42 AM EDT): Patient is asking to be referred to another gynecology office for evaluation and treatment Rash and nonspecific skin eruption 03/13/2023 Iron deficiency anemia 03/13/2023 Metrorrhagia 03/13/2023 Assessment & Plan (03/17/2024 1:07 PM EST): Patient will start norethidrone daily, side effects where discuss Continue to follow up with [facility] Assessment & Plan (09/10/2023 4:21 PM EDT): Referral to [facility] done Assessment & Plan (03/13/2023 11:49 AM EDT): F/u with [facility] Generalized abdominal pain 12/16/2022 Low vision 12/16/2022 Health care maintenance 12/16/2022 Colon cancer screening 12/16/2022 Cholesteatoma 09/24/2022 Plantar fasciitis 09/24/2022 Snoring 09/24/2022 Mixed anxiety and depressive disorder 09/24/2022 Moderate persistent asthma with acute exacerbati on 09/24/2022 Assessment & Plan (02/20/2025 9:43 AM EDT): Extensive counseling done about avoiding asthma triggers I will refill for her her albuterol I will go up on her albuterol to 230/21 mcg/ACT I will prescribe again for her montelukast 10 mg daily I will prescribe for patient prednisone 40 mg for 5 days, I advised if symptoms persist or worsen to come for evaluation to the walk-in clinic Assessment & Plan (03/17/2024 1:06 PM EST): [place] c/w same interventions Heartburn 09/24/2022 Assessment & Plan (09/24/2022 3:08 PM EDT): I advise patient to avoid NSAIDs, spicy and acid food, I advise to eat at the same time every day, I advise to elevate the head of the bed and take medications as prescribe Seasonal allergies 09/24/2022 Chronic low back pain 07/28/2022 Moderate persistent asthma 05/01/2022 Depression 05/01/2022 Anxiety 05/01/2022 Fibromyalgia 05/01/2022 Assessment & Plan (03/17/2024 1:07 PM EST): Patient was educated about multidisciplinary approach for her condition, it was advise cardiovascular exercise, maintain hydration, treat anxiety/depression and take medications as directed Assessment & Plan (09/10/2023 4:21 PM EDT): Patient was educated about multidisciplinary approach for her condition, it was advise cardiovascular exercise, maintain hydration, treat anxiety/depression and take medications as directed Assessment & Plan (09/24/2022 3:08 PM EDT): Patient was educated about multidisciplinary approach for her condition, it was advise cardiovascular exercise, maintain hydration, treat anxiety/depression and take medications as directed Nonintractable chronic migraine 05/01/2022 Vertigo 05/01/2022 Mild persistent asthma 07/09/2015 Assessment & Plan (09/10/2023 4:20 PM EDT): Patient educated to avoid asthma triggers Refills done Seborrheic dermatitis 07/09/2015 Carpal tunnel syndrome 02/11/2013 Asthma 05/11/1959 Migraine 05/11/1959 Encounters Date Type Department Care Team Description 02/20/2025 9:15 AM EDT Telemedicine [facility] [address] [place] [address] Veronika Blanco MD Dietary counseling; Exercise counseling; Moderate persistent asthma with acute exacerbation; Stress incontinence of urine; Uterine leiomyoma, unspecified location 02/20/2025 Travel 02/18/2025 Telephone [facility] [address] [place] [address] Veronika Blanco MD Chart Prep 02/13/2025 Travel 01/19/2025 Telephone [facility] [address] [place] [address] Veronika Blanco MD NOV RECALL 12/16/2024 Refill [facility] [address] [place] [address] [place], [place], 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 purified surface antigen ) 01/23/2012 Influenza, seasonal, injectable, preservative fr ee 01/03/2016,03/01/2015 Pneumococcal Polysaccharide PPSV23 07/11/2010 Pneumococcal, Unspecified 07/11/2010 TD (adult), 2 Lf tetanus tox oid, preservative free, adsorbed 01/21/2006 Tdap 05/17/2014 Social History Tobacco Use Types Packs/Day Years Used Date Smoking Tobacco: Former Cigarettes Passive Smoke Exposure: Never Smokeless Tobacco: Never Tobacco Cessation:Counseling Given: Not Answered Alcohol Use Standard Drinks/Week Comments Never 0 (1 standard drink = 0.6 oz pur e alcohol) Depression Answer Date Recorded Patient Health Questionnaire-9 Score 0 02/20/2025 Patient Health Questionnaire-9 Score 0 02/20/2025 Last PHQ-9: Questionnaire Data Not on file 1 Housing Stability Answer Date Recorded What is [...] Date Recorded Patient Health Questionnaire-2 Score 0 02/20/2025 Comments Unknown Sex and Gender Information Value Date Recorded Sex Assigned at Female 03/10/2022 10:21 AM EDT Legal Sex Female 10:21 AM EDT Gender Identity Female 03/10/2022 10:21 AM EDT Sexual Orientation Choose not to disclose 2021 10:21 AM EDT Last Filed Vital Signs Vital Sign Reading Time Taken Comments Blood Pressure 115/67 03/17/2024 9:54 AM EST Pulse 75 03/17/2024 9:54 AM EST Temperature 37.1 C (98.8 F) 03/17/2024 9:54 AM EST Respiratory Rate 20 03/17/2024 9:54 AM EST Oxygen Saturation 98% 03/17/2024 9:54 AM EST Inhaled Oxygen Concentration - - Weight 76 kg (167 lb 9.6 oz) 03/17/2024 9:54 AM EST Height 154.9 cm (5' 1 ) 03/17/2024 9:54 AM EST Body Mass Index 31.67 03/17/2024 9:54 AM EST Plan of Treatment Upcoming Encounters Date Type Department Care Team (Late st Contact Info) Description 04/03/2025 2:45 PM EST Office Visit [facility] [address] [place] [address] Veronika Blanco MD [address] [place] [address] Health Maintenance Due Date Last Done Comments CT Colonography 1977 Colonoscopy 1977 Colorectal Cancer Screening 1977 FIT DNA/Cologuard 1977 FIT 1977 FOBT 1977 Sigmoidoscopy 1977 Disability Screening 1977 Family Planning (PISQ) 1992 Hepatitis C Screening 1995 Hepatitis B Vaccines (1 of 3 - 19+ 3-dose series) 1996 Pneumococcal Vaccine: Pediatrics (0 to 5 Years) and At-Risk Patients (6 to 49) Years (2 of 2 - PCV) 07/12/2011 07/11/2010, 07/11/2010 DTaP/Tdap/Td Vaccines (2 - Td or Tdap) 05/17/2024 05/17/2014, 01/21/2006 SDOH Screening 09/01/2024 09/02/2023 COVID-19 Vaccine (2 - season) 2025 11/17/2020 Influenza Vaccine (#1) 2025 9, 01/25/2017, 01/03/2016, Additional history exists Mammogram 02/15/2025 02/16/2024, 08/2022, 08/07/2022, Additional history exists Tobacco Screening 03/17/2025 03/17/2024 Alcohol/Substance Use Screening 02/20/2026 02/20/2025 Depression Screening 02/20/2026 02/20/2025, 02/21/20 25 Zoster Vaccines (1 of 2) 2027 Cervical Cancer Screening 09/20/2027 HPV/Cotest 09/20/2027 09/19/2022 Pap Smear 09/20/2027 09/19/2022 RSV Patients and Patients Aged 60 years or older (1 - 1-dose 75+ series) 2052 HIV Screening Completed 06/01/2020 HIB Vaccines Aged Out No longer eligi ble based on patient's age to complete this topic HPV Vaccines Aged Out No longer eligi ble based on patient's age to complete this topic Hepatitis A Vaccines Aged Out No long er eligible based on patient's age to complete this topic IPV Vaccines Aged Out No longer eligi ble based on patient's age to complete this topic Meningococcal B Vaccine Aged Out No l onger eligible based on patient's age to complete this topic Meningococcal Vaccine Aged Out No adi mitchell eligible based on patient's age to complete this topic RSV under 20 months Aged Out No longe r eligible based on patient's age to complete this topic Rotavirus Vaccines Aged Out No longer eligible based on patient's age to complete this topic Procedures Procedure Name Priority Date/Time Associated Diagnosis Comments BI MAMMOGRAM DIAGNOSTIC TOMOSYNTHESIS BILATERAL Routine 02/16/2024 10:35 AM EDT HM PAP/HPV Routine 09/19/2022 HIV 1/2 ANTIGEN/ANTIBODY, FOURTH GENERATION W/RFL Routine 06/01/2020 10:32 AM EST from Last 3 Months or Most Recently Relevant to Health Maintenance Results * BI Mammogram Diagnostic Tomosynthesis Bilateral (02/16/2024 10:35 AM EDT) Anatomical Region Laterality Modality Breast Bilateral Mammography 02/16/2024 10:3 5 AM EDT Narrative 02/16/2024 12:09 PM EDT [facility] [address] [place] [address] Mammography Report Signed Patient: Nadiya Mccrary MR#: [id number] : 1975 Acct:[id number] Age/Sex: 48 / F ADM Date: 02/16/24 Loc: HO.MAMMO Attending Dr: Veronika Wilkerson MD Ordering Physician: Veronika Blanco MD Results: 2Benign Findings Date of Service: 02/16/24 Follow Up: 1 Year From [facility] Mammogram Procedure(s): MM tomosynthesis diagnostic BI Accession Number(s): [id number] cc: Veronika Blanco MD EXAMINATION: MM DIAGNOSTIC DIGITAL BREAST TOMOSYNTHESIS, BILATERAL CLINICAL INFORMATION: 1 year follow-up to establish two-year stability and benignity of left breast calcifications at the 10:00 axis, mid to posterior depth associated with a 9 mm cyst. Due for yearly. COMPARISON: Mammography: 02/11/2023, 08/07/2022, 12/30/2021(BI-RADS 3), 11/28/2021 (BI-RADS 0), 11/22/2020, and dating back to 2018. 12/30/2021 ultrasound left breast. TECHNIQUE: Digital breast tomosynthesis is performed in both the craniocaudal and mediolateral oblique views along with computer-aided detection (CAD). Synthesized 2D images are generated from the tomosynthesis. In addition to standard views, 2-D spot magnification left CC and LM views were obtained of the left breast. FINDINGS: The breasts are heterogeneously dense, which may obscure small masses (ACR BI-RADS breast composition Category c). Previously seen 9 mm oval cyst 10:00 axis of left breast with approximately 4 punctate associated calcifications is no longer definitely identified on the current exam. 3 remaining extremely faint punctate calcifications are present at the site of the previously identified cyst. There have been no aggressive changes over 2 years, and these calcifications are benign. Previously biopsied superior outer right breast mass, yielding fibroadenoma, with internal butterfly biopsy clip. This is benign. No suspicious grouped calcifications, suspicious masses, or areas of architectural distortion are identified in either breast. Parenchymal pattern is stable from the prior exams. No skin or axillary abnormalities. MM/MM tomosynthesis diagnostic BI IMPRESSION: There are no findings in either breast suspicious for malignancy. A few extremely faint punctate calcifications left breast 10:00 axis benign, having no aggressive changes over 2 years. The associated cyst is no longer identified. No further follow-up recommended. Recommend the patient resume routine annual screening mammography. ASSESSMENT: BI-RADS BI-RADS 2 - Benign Findings RECOMMENDATION: 1 year F/U Results were provided to the patient at time of visit by the technologist. This patient's information was entered into a reminder system with a target due date for their next mammogram. 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 [address] Mammography Report Signed Patient: Marie Mccrary#: [id number] : 1975Acct:[id number] Age/Sex: 48 / FADM Date: 02/16/24 Loc: HO.MAMMO Attending Dr: Veronika Wilkerson MD Ordering Physician: Veronika Blanco MDResults: 2Benign Findings Date of Service: 02/16/24Follow Up: 1 Year From Orig inal Mammogram Procedure(s): MM tomosynthesis diagnostic BI Accession Number(s): [id number] cc: Veronika Blanco MD EXAMINATION: MM DIAGNOSTIC DIGITAL BREAST TOMOSYNTHESIS, BILATERAL CLINICAL INFORMATION: 1 year follow-up to establish two-year stability and benignity of left breast calcifications at the 10:00 axis, mid to posterior depth associated with a 9 mm cyst. Due for yearly. COMPARISON: Mammography: 02/11/2023, 08/07/2022, 12/30/2021(BI-RADS 3), 11/28/2021 (BI-RADS 0), 11/22/2020, and dating back to 2018. 12/30/2021 ultrasound left breast. TECHNIQUE: Digital breast tomosynthesis is performed in both the craniocaudal and mediolateral oblique views along with computer-aided detection (CAD). Synthesized 2D images are generated from the tomosynthesis. In addition to standard views, 2-D spot magnification left CC and LM views were obtained of the left breast. FINDINGS: The breasts are heterogeneously dense, which may obscure small masses (ACR BI-RADS breast composition Category c). Previously seen 9 mm oval cyst 10:00 axis of left breast with approximately 4 punctate associated calcifications is no longer definitely identified on the current exam. 3 remaining extremely faint punctate calcifications are present at the site of the previously identified cyst. There have been no aggressive changes over 2 years, and these calcifications are benign. Previously biopsied superior outer right breast mass, yielding fibroadenoma, with internal butterfly biopsy clip. This is benign. No suspicious grouped calcifications, suspicious masses, or areas of architectural distortion are identified in either breast. Parenchymal pattern is stable from the prior exams. No skin or axillary abnormalities. MM/MM tomosynthesis diagnostic BI IMPRESSION: There are no findings in either breast suspicious for malignancy. A few extremely faint punctate calcifications left breast 10:00 axis benign, having no aggressive changes over 2 years. The associated cyst is no longer identified. No further follow-up recommended. Recommend the patient resume routine annual screening mammography. ASSESSMENT: BI-RADS BI-RADS 2 - Benign Findings RECOMMENDATION: 1 year F/U Results were provided to the patient at time of visit by the technologist. This patient's information was entered into a reminder system with a target due date for their next mammogram. Electronically signed by: Fernando Canela MD 02/16/2024 12:06 PM EDT Dictated By: Fernando Canela MD Signed By: <Electronically signed by Fernando Canela MD in OV> 02/16/24 1206 DD/ 1035 TD/TT: 02/16/24 1054 Infantry Senior Sergeant: Veronika Wilkerson MD IMG BI PROCEDURES [place] [facility]yn Result - Final * Hm Pap Smear (09/19/2022) Pap Negative for intraephithelial lesion or malignancy Negative for intraephithelial lesion or malignancy, Other [facility] HPV Undetected [facility] 09/19/2022 Historical Provider HEALTH MAINTENANCE Final Result [facility] [address] [place] [phone] * HIV 1/2 ANTIGEN/ANTIBODY,FOURTH GENERATION W/RFL (06/01/2020 10:32 AM EST) HIV-1/2 ANTIGEN AND ANTIBODIES, 4TH GENERATION W/ REFLEX NON-REACT VERONICA NON-REACT VERONICA [facility] Comment: HIV-1 antigen and HIV-1/HIV-2 antibodies were not detected. There is no laboratory evidence of HIV infection. PLEASE NOTE: This information has been disclosed to you from records whose confidentiality may be protected by state law. If your state requires such protection, then the state law prohibits you from making any further disclosure of the information without the specific written consent of the person to whom it pertains, or as otherwise permitted by law. A general authorization for the release of medical or other information is NOT sufficient for this purpose. For additional information please refer to http://[email or web address] [email or web address]/faq/LJF914 (This link is being provided for informational/ educational purposes only.) The performance of this assay has not been clinically validated in patients less than 2 years old. 06/01/2020 10:3 2 AM EST us Veronika Wilkerson MD LAB BLOOD ORDERABLES Final Result [facility] [address] [place] [address], from Last 3 Months or Most Recently Relevant to Health Maintenance Insurance HSN FULL [facility] C3 Care Teams Ldr Nurse Relationship Specialty Start Date End Date Veronika Blanco MD [address] [place] [address] PCP - General Family Medicine 02/28/20
--- OUTSIDE RECORDS SUMMARY | 2025-02-28 13:04 | XMS_ITS | Encounter Summary ---
Author Organization [employer] Address [address] [facility] [address] [place] [address] Care Team Providers Care Epic Trainer Name Role Phone Veronika Blanco MD Primary Care Provide r Reason for Visit * Reason Onset Date Comments Med Refill 08/19/2023 Encounter Details Date Type Department Care Team (Late st Contact Info) Description 08/19/2023 Refill [facility] [address] [place], [place] [phone] Tara Cervantes DO [address] [place], [place] [phone] Right-sided chest pain Social History Tobacco Use Types Packs/Day Years [...] Description 04/03/2025 2:45 PM EST Office Visit [facility] [address] [place] [phone] Veronika Blanco MD [address] [place] [phone] documented as of this encounter Visit Diagnoses Diagnosis Right-sided chest pain documented in this encounter Additional Health Concerns Assessment Noted Time PHQ-9 Depression Total Score: 0 09/25/19 23 10:07 AM EDT documented as of this encounter Care Teams Epic Trainer Relationship Specialty Start Date End Date Veronika Blanco MD [address] [place] [phone] PCP - General Family Medicine 02/28/20 documented as of this encounter
--- OUTSIDE RECORDS SUMMARY | 2025-02-28 13:04 | XMS_ITS | Encounter Summary ---
Author Organization [employer] Address [address] [facility] [address] [place] [address] Care Team Providers Care After School Teacher Name Role Phone Veronika Blanco MD Primary Care Provide r Reason for Visit * Reason Onset Date Comments Med Refill 09/09/2023 Encounter Details Date Type Department Care Team (Late st Contact Info) Description 09/09/2023 Refill [facility] [address] [place], [place] [phone] Veronika Blanco MD [address] [place], [place] [phone] Seborrheic dermatitis Social History Tobacco Use Types [...] Description 04/03/2025 2:45 PM EST Office Visit [facility] [address] [place] [phone] Veronika Blanco MD [address] [place] [phone] documented as of this encounter Visit Diagnoses Diagnosis Seborrheic dermatitis Unspecified seborrheic dermatitis documented in this encounter Additional Health Concerns Assessment Noted Time PHQ-9 Depression Total Score: 0 09/25/19 23 10:07 AM EDT documented as of this encounter Care Teams After School Teacher Relationship Specialty Start Date End Date Veronika Blanco MD [address] [place] [phone] PCP - General Family Medicine 02/28/20 documented as of this encounter
--- OUTSIDE RECORDS SUMMARY | 2025-02-28 13:04 | XMS_ITS | Encounter Summary ---
Author Organization [employer] Address [address] [facility] 7t [place] [address] Care Team Providers Care Region Manager Name Role Phone Veronika Blanco MD Primary Care Provide r Reason for Visit * Reason Onset Date Comments Med Refill 10/11/2024 Encounter Details Date Type Department Care Team (Late st Contact Info) Description 10/11/2024 Refill [facility] MEDICINE [address] [place], [place] [phone] Tara Cervantes DO [address] [place], [place] [phone] Right-sided chest pain Social History Tobacco Use [...] Description 04/03/2025 2:45 PM EST Office Visit [facility] MEDICINE [address] [place] [address] Veronika Blanco MD [address] [place] [address] documented as of this encounter Visit Diagnoses Diagnosis Right-sided chest pain documented in this encounter Additional Health Concerns Assessment Noted Time PHQ-9 Depression Total Score: 0 03/17/20 24 9:55 AM EST documented as of this encounter Care Teams Region Manager Relationship Specialty Start Date End Date Veronika Blanco MD [address] [place] [address] PCP - General Family Medicine 02/28/20 documented as of this encounter
--- OUTSIDE RECORDS SUMMARY | 2025-02-28 13:04 | XMS_ITS | Encounter Summary ---
Author Organization [employer] Address [address] [place] [address] 7t [place] [address] Care Team Providers Care Gardener Florist Name Role Phone Veronika Blanco MD Primary Care Provide r Encounter Details Date Type Department Care Team ([facility] Contact Info) Description 11/05/2022 Abstract [facility] MEDICINE [address] [place], [place] [phone] Veronika Blanco MD 230 [place] [address] Social History Tobacco Use Types Packs/Day Years Used Date Smoking Tobacco: Former Cigarettes Smokeless Tobacco: Never Alcohol Use Standard Drinks/Week Comments Never 0 (1 standard drink = 0.6 oz pur e alcohol) Depression Answer Date Recorded Patient Health Questionnaire-9 Score 0 09/24/2022 Depression Answer Date Recorded Patient Health Questionnaire-2 Score 0 09/24/2022 Comments Unknown Sex and Gender Information Value Date Recorded Sex Assigned at Female 03/10/2022 10:21 AM EDT Legal Sex Female 10:21 AM EDT Gender Identity Female 03/10/2022 10:21 AM EDT Sexual Orientation Choose not to disclose 2021 10:21 AM EDT COVID-19 Exposure Response Date Recorded In the last 10 days, have yo u been in contact with someone who was confirmed or suspected to have Coronavirus/COVID-19? No / Unsure 10/29/2022 2:43 PM EDT documented as of this encounter Plan of Treatment Upcoming Encounters Date Type Department Care Team (Late Contact Info) Description 04/03/2025 2:45 PM EST Office Visit [facility] MEDICINE [address] [place] [address] Veronika Blanco MD [address] [place] [address] documented as of this encounter Procedures Procedure Name Priority Date/Time Associated Diagnosis Comments PAP/HPV Routine 09/19/2022 documented in this encounter Results * Pap Smear (09/19/2022) Pap Negative for intraephithelial lesion or malignancy Negative for intraephithelial lesion or malignancy, Other [facility] HPV Undetected [facility] 09/19/2022 us Historical Provider HEALTH MAINTENANCE Final Result [facility] [address] [place] [address] [phone] documented in this encounter Visit Diagnoses Not on filedocumented in this encounter Additional Health Concerns Assessment Noted Time PHQ-9 Depression Total Score: 0 09/25/19 23 10:07 AM EDT documented as of this encounter Care Teams Gardener Florist Relationship Specialty Start Date End Date Veronika Blanco MD [address] [place] [address] PCP - General Family Medicine 02/28/20 documented as of this encounter
--- OUTSIDE RECORDS SUMMARY | 2025-02-28 13:04 | XMS_ITS | Encounter Summary ---
Author Organization [employer] Address [address] [facility] 7t [place] [address] Care Team Providers Care Doughmaker Name Role Phone Veronika Blanco MD Primary Care Provide r Reason for Visit * Reason Onset Date Comments Med Refill 08/19/2023 Encounter Details Date Type Department Care Team (Late st Contact Info) Description 08/19/2023 Refill [facility] [address] [place] [address] Tara Cervantes, 230 [place], [place] [phone] Social History Tobacco Use Types Packs/Day Years Used Date Smoking Tobacco: Former Cigarettes Smokeless Tobacco: Never Alcohol Use Standard Drinks/Week Comments Never 0 (1 standard drink = 0.6 oz pur e alcohol) Depression Answer Date Recorded Patient Health Questionnaire-9 Score 0 09/24/2022 Housing Stability Answer Date Recorded What is your housing situation today? I have joseosmar pruitt 03/11/[address] you [...] Description 04/03/2025 2:45 PM EST Office Visit [facility] MEDICINE [address] [place] [phone] Veronika Blanco MD [address] [place] [phone] documented as of this encounter Visit Diagnoses Not on filedocumented in this encounter Additional Health Concerns Assessment Noted Time PHQ-9 Depression Total Score: 0 09/25/19 23 10:07 AM EDT documented as of this encounter Care Teams Doughmaker Relationship Specialty Start Date End Date Veronkia Blanco MD [address] [place] [phone] PCP - General Family Medicine 02/28/20 documented as of this encounter
--- OUTSIDE RECORDS SUMMARY | 2025-02-28 13:04 | XMS_ITS | Encounter Summary ---
Author Organization [employer] Address [address] [facility] 7t [place] [address] Care Team Providers Care Case Management Associate Name Role Phone Veronika Blanco MD Primary Care Provide r Reason for Visit * Reason Onset Date Comments Med Refill 09/09/2023 Encounter Details Date Type Department Care Team (Late st Contact Info) Description 09/09/2023 Refill [facility] MEDICINE [address] [place], [place] [phone] Veronika Blanco MD 230 [place], [place] [phone] Social History Tobacco Use Types Packs/Day Years [...] Description 04/03/2025 2:45 PM EST Office Visit [facility] MED[facility] [address] [place] [phone] Veronika Blanco MD [address] [place] [phone] documented as of this encounter Visit Diagnoses Not on filedocumented in this encounter Additional Health Concerns Assessment Noted Time PHQ-9 Depression Total Score: 0 09/25/19 23 10:07 AM EDT documented as of this encounter Care Teams Case Management Associate Relationship Specialty Start Date End Date Veronika Blanco MD [address] [place] [phone] PCP - General Family Medicine 02/28/20 documented as of this encounter
[2025-02-28 13:22] LABS: MANUAL DIFF FLAG NO
[2025-02-28 13:58] LABS: Hematocrit 38.6 % (37.0-47.0); Hemoglobin 12.6 g/dl (12.0-16.0); Imm Gran Abs Auto 0.15 X10*3/uL (0.00-0.03); Imm Gran Pct Auto 1.2 % (0.0-0.4); Lymphocytes Absolute Auto 3.2 X10*3/uL (1.2-4.9); Mean Corpuscular HGB Conc 32.6 g/dl (31.0-35.0); Mean Corpuscular Hemoglobin 28.3 pg (27.0-33.0); Mean Corpuscular Volume 86.5 fL (80.0-98.0); NRBC Abs Auto 0.000 X10*3/uL (0.0-0.012); NRBC Pct Auto 0.0 /100WBC (0.0-0.2); Platelet Count 435 X10*3/uL (160-400); Red Blood Count 4.46 X10*6/uL (4.20-5.50); White Blood Count 12.7 X10*3/uL (4.8-10.8)
[2025-02-28 17:23] LABS: Alanine Aminotransferase 14 U/L (0-31); Albumin Level 4.1 g/dL (3.5-5.0); Alkaline Phosphatase 69 U/L (39-117); Anion Gap 11 (12-20); Aspartate Amino Transferase 16 U/L (5-31); Blood Urea Nitrogen 11 mg/dL (9-16); Calcium 9.5 mg/dL (8.4-10.2); Carbon Dioxide 25 mmol/L (22-29); Chloride 105 mmol/L (96-108); Cholesterol 226 mg/dL (<200); Estimated Glomerular Filt Rate > 60; HDL Cholesterol 104 mg/dL (>40); Potassium 4.2 mmol/L (3.3-5.1); Sodium 137 mmol/L (135-145); Total Protein 7.7 g/dL (6.5-8.0); Triglycerides 92 mg/dL (<150)
[2025-03-01 03:31] LABS: HIV Num 1 0.07 S/CO (0.00-0.99); ~HepC Num1 0.12 S/CO (0.00-0.79); ~Hepatitis C Antibody Nonreactive (Nonreactive)
== END 2025-02-28 10:47 | disposition home or self-care (01) ==
LOC: HO.HHCL 10:46
PROVIDERS: PCP Internal Medicine; Visit Provider Internal Medicine
DX: Z11.59 Encounter for screening for other viral diseases (principal); Z11.4 Encounter for screening for human immunodeficiency virus [HIV]; D25.9 Leiomyoma of uterus, unspecified
CPT/HCPCS: 36415; 80053; 80061; 82306; 83036; 84443; 85025; 86803; 87389

== ENCOUNTER 2025-03-23 10:21 | Outpatient (REF) | payer MEDICAID, SELFPAY | END 2025-03-23 10:22 | disposition home or self-care (01) | LOC: HO.LNP 10:21 | PROVIDERS: PCP Internal Medicine; Visit Provider Advanced Practice Midwife | DX: Z01.419 Encounter for gynecological examination (general) (routine) without abnormal findings (principal); D21.9 Benign neoplasm of connective and other soft tissue, unspecified; R32 Unspecified urinary incontinence; Z12.39 Encounter for other screening for malignant neoplasm of breast; Z11.51 Encounter for screening for human papillomavirus (HPV); Z98.51 Tubal ligation status | CPT/HCPCS: 87626; 88175; 99396 ==

== ENCOUNTER 2025-03-23 10:21 | Outpatient (AMB) | payer MEDICAID, SELFPAY ==
--- NOTE | 2025-03-23 10:21 | MHC.OFFVIS ---
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 Senior Risk Analyst: Senior Risk Analyst Present ([place]) Accompanied by: Self / Same As Patient Allergies ciprofloxacin (Cipro) Allergy (Unknown, Verified 03/23/25 10:23) Unknown tramadol Allergy (Unknown, Verified 03/23/25 10:23) Unknown meperidine (Demerol) Adverse Reaction (Unknown, Verified 03/23/25 10:23) vomiting Tramadol & Dietary Manage Prod Allergy (Unknown, Uncoded 03/18/23 13:03) Unknown Medication List - Last Reconciled 03/23/25 by Jessica Cardenas CNM albuterol sulfate 90 mcg/actuation 1 inh inhalation QID ibuprofen 800 mg PO TID Is last menstrual period known: Yes Last menstrual period: 03/12/25 Post menopausal: No Patient : No HPI 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 In previous years she has discussed her heavy periods and discussion of possible use of a Mirena took place she went to [facility] for 2nd opinion and she says that they found a 3 +cm fibroid and that they gave her an control pills (her previous visit norethindrone was stated as the pill) she said when she started them they gave her breast tenderness and nausea and diarrhea and so she did not take them anymore. She said her periods really are not very heavy now they are come every month right on time and last about 3-4 days with a little spotting after. Her last period was March 12. She has a mammogram scheduled for tomorrow. She sees her primary care provider here at the [facility] and she has fibromyalgia and carpal tunnel syndrome she is also waiting a neurology referral to evaluate her aches and pains all over. The main complaint she also brought up today was that she has been finding she has incontinence of urine at home and she was needing to wear diapers. She said sometimes it just comes out. She is going to be seeing Urology this month. She says she was evaluated with them years ago and they told her that she was not completely emptying her bladder then. So we did discuss this in some detail at this visit as well. She is sexually active with her who she cares for in every way he had a stroke some years ago so he has some disabilities. [facility] Medical History Back pain Fibromyalgia Depression Anxiety Asthma Vertigo Carpal tunnel syndrome Hx of migraines Surgical History Hx of appendectomy Hx of section History of tubal ligation History of ear surgery Family History Mother HTN (hypertension) Diabetes Breast cancer Father HTN (hypertension) Maternal Aunt Ovarian cancer Cervical cancer Social History Alcohol intake: never Gender identity: Female Female Reproductive History Menstrual Age of Menarche: 14 Duration of menses: 3-5 days Date of last menstrual period: 03/12/25 control method: permanent sterilization (Tubal ligation) Total pregnancies: 3 Full term: 2 Ab spontaneous: 1 Date of last pap smear: 09/19/21 (negative pap smear, negative hpv ) Date of Mammogram: 02/16/24 (bi rad 2) Physical Exam Vital Signs: Last Vital Signs BP 112/70 03/23/25 10:26 BMI result Body Mass Index 33.3 Const General: healthy appearing, comfortable, no acute distress, well developed and alert Nutritional Appearance: average body habitus Orientation/consciousness: patient oriented x3 Limitations: no limitations HEENT Head: Yes normocephalic Neck Neck: Yes normal visual inspection Chest Chest palpation & inspection: normal inspection of the chest Breast/axilla inspection: normal inspection of the breasts and normal inspection of the axillae Breast/axilla palpation: normal palpation of the breasts and normal palpation of the axillae Resp Effort & Inspection: normal respiratory effort GI Inspection: Yes normal to inspection, No Abdominal wall edema and No distended Palpation (GI): Soft to palpation and nontender Other: External exam within normal limits vagina pink and moist cervix multiparous pink smooth healthy appearing with very clear fertile type mucus uterus small midposition mobile nontender does not feel enlarged to this provider today adnexa nontender nonenlarged patient has moderate tone with Kegel and was able to strengthen the muscular contraction with each attempt. She does these exercises at home. General: Yes bladder normal to palpation External Female Exam: normal external appearance and normal appearance of the urethra Speculum Exam - Vagina: normal appearance of the vagina, normal palpation and normal vaginal discharge Speculum Exam - Cervix: normal appearance of the cervix, normal palpation and nontender Bimanual exam- vagina & uterus: normal bimanual exam, normal palpation, uterine size normal, bladder normal to palpation, consistency normal, normal palpation, uterine mobility normal, uterine shape normal, No Cervical tenderness present, non-tender and no cervical motion tenderness Bimanual Exam- Adnexa, other: normal adnexae, no masses, normal and No adnexal tenderness Neuro General: patient oriented x3 Assessment & Plan Assessment & Plan (1) Well woman exam with routine gynecological exam: Code(s): Z01.419 - Encounter for gynecological examination (general) (routine) without abnormal findings Category: Medical (2) Urinary incontinence in female: Code(s): R32 - Unspecified urinary incontinence Category: Medical (3) Breast cancer screening other than mammogram: Code(s): Z12.39 - Encounter for other screening for malignant neoplasm of breast Category: Medical (4) Cervical cancer screening: Comment: pap done 09/19/21= negative with negative HPV; 11/2023 Pap at [facility] w TREY-colpo/bx 02/12/2024 at [facility] negative.; Pap done 03/23/2025.... Code(s): Z12.4 - Encounter for screening for malignant neoplasm of cervix Category: Medical (5) Fibroids: Comment: Evaluated by ultrasound and CT scan at [facility] 2023 the largest is 3.7 cm., decision against surgery was made. 03/21/2024 patient will try norethindrone that was given to her by [facility], start with next menses. Code(s): D21.9 - Benign neoplasm of connective and other soft tissue, unspecified Category: Medical Plan -----Discussed in this visit the following: healthy balanced diet, regular and consistent exercise, getting recommended health screens, doing the best she can for her particular health concerns, kegel exercises, pap smear screening and followup recommendations, mammography screening and SBE, normal changes in cycles in her life stage--- . She will be getting her mammogram tomorrow. Discussed her previous concern with her menses and discussions that had taken place and previous plans for possible Mirena move norethindrone OCPs per [facility]. However she is no longer having any real issues or concerns with her periods they come on time they do not last too long they are not very heavy for her so since she did not like the side effects of the progestin only pills she was given she is not interested in anything at all right now and does not feel she needs it. Pap smear was done we will await the results and let her know if there is anything abnormal to follow-up on Discussed and offered STI testing and at 1st she was thinking of doing it but she has had no sexual contact with anyone other than her and he is disabled and in the house and she says she knows that he is not unfaithful to her so and she did not have any abnormal discharge either. She was aware that she is probably ovulating she had her tubes tied in the past and she said she always got very easily. In terms of the incontinence she will be seen soon by Urology discussed the very common problem of incomplete emptying of bladder and the interaction between Women's busy lives and distractions and the habits that are common to hold one's urine for too long which leads to over expansion of the bladder and then difficulty emptying the bladder afterwards discussed trying to change the have it and trying to remind herself to void more frequently and see if she can more completely empty her bladder so she does not run into the overflow incontinence problem. She will discuss this further with urologists coming up. She does Kegel exercises and she was felt like she was doing them correctly encouraged to hold the muscle contraction a few sec longer. In addition discussed doing stretches to help her feel more limber with her fibromyalgia. She is her 's caregiver so she may not have easy access to other potentially beneficial ways of exercising like swimming at a pool, however she does exercise at home on a treadmill and she has little weights and she exercises with videos. 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 She says her support is God. RTC 1 year. Coding Level of Care Code Est Pt Prev Care 40-64y(21469) Diagnoses Well woman exam with routine gynecological exam Z01.419 Urinary incontinence in female R32 Breast cancer screening other than mammogram Z12.39 Cervical cancer screening Z12.4 Fibroids D21.9
[2025-03-23 10:26] VITALS: BP 112/70; BMI 33.3
--- OUTSIDE RECORDS SUMMARY | 2025-03-23 12:35 | XMS_ITS | Encounter Summary ---
Author Organization [employer] Address [address] [place] [address] 7t [place] [address] Care Team Providers Care Metabolic Specialist Name Role Phone Veronika Blanco MD Primary Care Provide r Reason for Visit * Reason Comments Med Refill Encounter Details Date Type Department Care Team ([facility] st Contact Info) Description 08/05/2023 Refill [facility] MEDICINE [address] [place], [place] [phone] Veronika Blanco MD [address] [place], [place] [phone] Seborrheic dermatitis Social History Tobacco Use Types [...] Care Team (Late st Contact Info) Description 04/25/2025 9:30 AM EST Office Visit [facility] MEDICINE [address] [place] [address] Veronika Blanco MD [address] [place] [address] 06/28/2025 2:00 PM EST Office Visit [facility] OPTOMETRY [address] [place] [address] Denilson, Olivia, OD [address] [place] [address] documented as of this encounter Visit Diagnoses Diagnosis Seborrheic dermatitis Unspecified seborrheic dermatitis documented in this encounter Additional Health Concerns Assessment Noted Time PHQ-9 Depression Total Score: 0 09/25/19 23 10:07 AM EDT documented as of this encounter Care Teams Metabolic Specialist Relationship Specialty Start Date End Date Veronika Blanco MD [address] [place] [address] PCP - General Family Medicine 02/28/20 documented as of this encounter
--- OUTSIDE RECORDS SUMMARY | 2025-03-23 12:35 | XMS_ITS | Encounter Summary ---
Author Organization [employer] Address [address] [place] [address] 7t [place] [address] Care Team Providers Care Juvenile Counselor Name Role Phone Veronika Blanco MD Primary Care Provide r Encounter Details Date Type Department Care Team ([facility] Contact Info) Description 11/05/2022 Abstract [facility] MEDICINE [address] [place], [place] [phone] Veronika Blanco MD [address] [place] [address] Social History Tobacco Use Types Packs/Day Years [...] Department Care Team (Late Contact Info) Description 04/25/2025 9:30 AM EST Office Visit [facility] MEDICINE [address] [place] [address] Veronika Blanco MD [address] [place] [address] 06/28/2025 2:00 PM EST Office Visit [facility] OPTOMETRY [address] [place] [address] Denilson, Olivia, OD [address] [place] [address] documented as of this encounter Procedures Procedure Name Priority Date/Time Associated Diagnosis Comments PAP/HPV Routine 09/19/2022 documented in this encounter Results * Pap Smear (09/19/2022) Pap Negative for intraephithelial lesion or malignancy Negative for intraephithelial lesion or malignancy, Other [facility] HPV Undetected [facility] 09/19/2022 us Historical Provider HEALTH MAINTENANCE Final Result [facility] [address] [place] [address] [phone] documented in this encounter Visit Diagnoses Not on filedocumented in this encounter Additional Health Concerns Assessment Noted Time PHQ-9 Depression Total Score: 0 09/25/19 23 10:07 AM EDT documented as of this encounter Care Teams Juvenile Counselor Relationship Specialty Start Date End Date Veronika Blanco MD [address] [place] [address] PCP - General Family Medicine 02/28/20 documented as of this encounter
--- OUTSIDE RECORDS SUMMARY | 2025-03-23 12:35 | XMS_ITS | Encounter Summary ---
Author Organization [employer] Address [address] [facility] 7t [place] [address] Care Team Providers Care Systems Applications Programming Lead Name Role Phone Veronika Blanco MD Primary Care Provide r Reason for Visit * Reason Onset Date Comments Med Refill 09/09/2023 Encounter Details Date Type Department Care Team (Late st Contact Info) Description 09/09/2023 Refill [facility] MEDICINE [address] [place], [place] [phone] Veronika Blanco MD [address] [place], [place] [phone] Social History Tobacco Use Types Packs/Day Years [...] Description 04/25/2025 9:30 AM EST Office Visit [facility] MEDICINE [address] [place] [address] Veronika Blanco MD [address] [place] [address] 06/28/2025 2:00 PM EST Office Visit [facility] OPTOMETRY [address] [place], [place] [phone] Denilson, Olivia, OD [address] [place] [address] documented as of this encounter Visit Diagnoses Not on filedocumented in this encounter Additional Health Concerns Assessment Noted Time PHQ-9 Depression Total Score: 0 09/25/19 23 10:07 AM EDT documented as of this encounter Care Teams Systems Applications Programming Lead Relationship Specialty Start Date End Date Veronika Blanco MD [address] [place] [phone] PCP - General Family Medicine 02/28/20 documented as of this encounter
--- OUTSIDE RECORDS SUMMARY | 2025-03-23 12:35 | XMS_ITS | Encounter Summary ---
Author Organization [employer] Address [address] [place] [address] 7t [place] [address] Care Team Providers Care Core Layer Machine Operator Name Role Phone Veronika Blanco MD Primary Care Provide r Reason for Visit * Reason Onset Date Comments Med Refill 10/11/2024 Encounter Details Date Type Department Care Team (Late st Contact Info) Description 10/11/[address] [facility] MEDICINE [address] [place] [address] [facility] [address] [place] [address] Seborrheic dermatitis Social History Tobacco Use Types [...] Description 04/25/2025 9:30 AM EST Office Visit [facility] MEDICINE [address] [place] [address] Veronika Blanco MD [address] [place] [address] 06/28/2025 2:00 PM EST Office Visit [facility] OPTOMETRY [address] [place] [address] Denilson, Olivia, OD [address] [place] [address] documented as of this encounter Visit Diagnoses Diagnosis Seborrheic dermatitis Unspecified seborrheic dermatitis documented in this encounter Additional Health Concerns Assessment Noted Time PHQ-9 Depression Total Score: 0 03/17/20 24 9:55 AM EST documented as of this encounter Care Teams Core Layer Machine Operator Relationship Specialty Start Date End Date Veronika Blanco MD [address] [place] [phone] PCP - General Family Medicine 02/28/20 documented as of this encounter
--- OUTSIDE RECORDS SUMMARY | 2025-03-23 12:35 | XMS_ITS | Data Portability ---
Author Organization [place] - [facility], Allergy Address [address] [facility] [address] [place] [id number] Care Team Providers Care [employer] Name Role Phone MICHAEL JEAN-BAPTISTE Primary Care Provider [phone] Assessment Encounter Date Assessment Date Assessment LastModified by Organization Details LastModified Time 11/24/2023 11/24/2023 Patient with canal wall down mastoidectomy. Mastoid debridement performed today which the patient tolerated well. The patient understands the need for routine mastoid bowl debridement procedures to prevent squamous debris accumulation and to reduce the risk of mastoid bowl infections. The patient will continue to follow dry ear precautions and will followup as discussed during today's visit. Not available 11/24/2023 14:30:19 05/26/2024 05/26/2024 Pt with hx of right modified radical mastoidectomy and meatoplasty performed 04/23/12. She returns for reevaluation and debridement today. Dried debris was removed from right-sided cavity without complication today. There is no evidence of liquid or drainage on the right. Left-sided cerumen impaction removed today. Follow up in 9 months for reevaluation and routine debridement [email or web address] Not available 05/26/2024 14:54:36 02/27/2025 02/27/2025 Pt with hx of right modified radical mastoidectomy and meatoplasty performed 04/23/12. She returns for reevaluation and debridement today. Dried debris was removed from right-sided cavity without complication today. There is no evidence of liquid or drainage on the right. Left-sided cerumen impaction removed today. Follow up in 9 months for reevaluation and routine debridement Not available 02/26/2025 21:07:42 Plan of Treatment Reminders Order Date Submit Date Provider Last Modified By Organization Details Last Modified Time Details Appointments Establish ed 10 2025 09:00A M АЛЕКСАНДР VANG MD Not available Not available Not available Lab None recorded. Referral None recorded. Procedures None recorded. Surgeries None recorded. Imaging None recorded. Medication Orders None recorded. Patient TargetsNo targets recorded. Patient InstructionsNo instructions recorded. Reason for Referral None Reported. Problems Name Problem SNOMED Code Status Onset Date Resolution Date Notes Provider Name and Address Organization Details Recorded Time [facility] 07729683 Completed 201312/11/2023 Ch[facility] at[facility]; Note: Date Diagnose d: 05/02/20 14 11:05 AM (385.31) Not Available [facility] 4 02:59:16 Chronic mastoidi tis 23229186 Active 2013 Chronic mastoidi tis; Note: Date Diagnose d: 05/02/20 14 11:05 AM (383.1) Note: Date Diagnose d: 05/02/20 14 11:05 AM (383.1) Not Available [facility] 4 01:08:52 Migraine variants 468116203 Active 2014 Migraine variant; Note: Date Diagnose d: 5 9:16 AM (346.20) Not Available [facility] 4 02:59:15 Vertigo of central origin 00949072 Active 2014 Vertigo of central origin; Note: Date Diagnose d: 5 9:16 AM (386.2) Not Available [facility] 4 02:59:15 Epidermo id cyst of skin 161679704 Active 2014 Sebaceou s cyst; Conditio n: improved Note: Date Diagnose d: 05/02/20 14 11:06 AM (706.2) Not Available [facility] 4 02:59:13 Chronic mycotic otitis externa 675644651 Active 2014 Chronic mycotic otitis externa; Note: Date Diagnose d: 5 9:25 AM (380.15) Not Available [facility] 4 02:59:16 Jaw pain 163211252 Active 2015 Periauri cular pain of TMJ origin; Note: Date Diagnose d: 5 9:26 AM (784.92) ; Start Date : 11/29/19 15 Jaw pain; Note: Date Diagnose d: 6 9:14 AM (R68.84) [mapped from ICD9 code: 784.92] Not Available [facility] 4 02:59:15 Migraine 47717198 Active 2015 Other migraine , not intracta ble, without status migraino edil; Note: Date Diagnose d: 6 9:14 AM (G43.809 ) [mapped from ICD9 code: 346.20] Not Available [facility] 4 02:59:14 Conducti ve hearing loss, bilatera l 512302691 Active 2015 Conducti ve hearing loss, bilatera l; Note: Date Diagnose d: 05/02/20 14 11:05 AM (389.06) ; Start Date : 05/02/20 14 Condu ctive hearing loss, bilatera l; Note: Date Diagnose d: 6 9:14 AM (H90.0) [mapped from ICD9 code: 389.06] Not Available [facility] 4 02:59:14 Bilatera l temporom andibula r joint pain 83542500903 405157 Active 2016 Arthralg ia of bilatera l temporom andibula r joint; Note: Date Diagnose d: 7 8:31 AM (M26.623 ) Not Available [facility] 4 02:59:13 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 Other disorder s followin g mastoide ctomy, right ear; Note: Date Diagnose d: 11/13/2016 9:07 AM (H95.191 ) Other disorder s followin g mastoide ctomy, right ear; Note: Date Diagnose d: 6 9:37 AM (H95.191 ) ; Start Date : 11/20/19 16 Other disorder s followin g mastoide ctomy, right ear; Note: Date Diagnose d: 6 9:04 AM (H95.191 ) ; Start Date : 05/22/19 16 Not Available [facility] 4 02:59:16 Impacted cerumen in left ear 04173791679 64468 Active 2016 Impacted cerumen, left ear; Note: Date Diagnose d: 11/13/2016 9:10 AM (H61.22) Not Available [facility] 4 02:59:14 Tinnitus of right ear 43996246542 08 Active 2016 Tinnitus , right ear; Note: Date Diagnose d: 04/30/20 17 9:46 AM (H93.11) Not Available [facility] 4 02:59:17 Follow-u p visit Active 2016 Encounte r for follow-u p examinat ion after complete d treatmen t for conditio ns other than malignan t neoplasm ; Note: Date Diagnose d: 04/30/20 17 2:54 PM (Z09) Not Available [facility] 4 02:59:16 Hypertro phy of nasal turbinat es 48196655 Active 2017 Hypertro phy of nasal turbinat es; Note: Date Diagnose d: 8 10:07 AM (J34.3) Not Available [facility] 4 02:59:14 Disorder of right Eustachi an tube 13253995131 90928 Active 2017 Other specifie d disorder s of Eustachi an tube, right ear; Note: Date Diagnose d: 8 10:04 AM (H69.81) Not Available [facility] 4 02:59:17 Allergic rhinitis 19761230 Active 2018 Allergic rhinitis : Due to other allergen ; Note: Date Diagnose d: 9 1:07 PM (477.8) Allerg ic rhinitis : Due to other allergen ; Note: Date Diagnose d: 8 2:01 PM (477.8) ; Start Date : 02/02/20 18 Peren nial allergic rhinitis ; Note: Date Diagnose d: 8 10:05 AM (J30.89) ; Start Date : 10/29/19 18 Not Available [facility] 4 02:59:15 Fibromya lgia 967036833 Active 2020 Fibromya lgia; Note: Date Diagnose d: 1 2:00 PM (M79.7) Not Available [facility] 4 02:59:14 Pain of right temporom andibula r joint 50885415738 787898 Active 2020 Arthralg ia of right temporom andibula r joint; Note: Date Diagnose d: 1 1:59 PM (M26.621 ) Not Available [facility] 4 02:59:17 Referred otalgia of right ear 58371722539 77105 Active 2024 АЛЕКСАНДР VANG MD [address] [place] [address],[address], [address] , [place] - [facility] 5 14:53:46 Problem Notes None recorded. Procedures Surgical History Date Name Laterality Status Provider Name and Address Organization Details Recorded Time 5 Debridement of Mastoid Cavity right completed АЛЕКСАНДР VANG MD [address] [place] [address],[address], [address], [place] - [facility] 02/26/2025 21:07:42 5 Cerumen removal without microscope left completed АЛЕКСАНДР VANG MD [address] [place] [address],[address], [address], [place] - [facility] 02/26/2025 21:07:42 5 Debridement of Mastoid Cavity right completed АЛЕКСАНДР VANG MD [address] [place] [address],[address], [address], [place] - [facility] 05/25/2024 21:41:58 5 Cerumen removal without microscope left completed АЛЕКСАНДР VANG MD [address] [place] [address],[address], [address], [place] - [facility] 05/26/2024 14:54:58 4 Debridement of Mastoid Cavity right completed PARRISH RIVAS PA-C [address] [facility] [address], [place], [address], [facility] - [facility] 11/24/2023 14:30:12 4 Cerumen removal without microscope left completed PARRISH RIVAS PA-C [address], [place], [address], [facility] - [facility] 11/24/2023 14:29:38 Imaging Results None recorded. Procedure Notes None recorded. Medical Equipment None Reported. Allergies Allergen ID Allergen Name Allergen Category Reaction Reaction Severity Criticality Documentation Date Start Date Code Code System Note Provider Name and Address Organization Details Recorded Time 106716 meperidin e hydrochlo ride medicatio n other Not available Not available 09/22/2023 52123 5 RxNorm React ion: unkno wn, unspe cifie d;; Not Available [facility] 4 01:08:10 391828 Cipro medicatio n other Not available Not available 09/22/2023 16430 3 RxNorm React ion: other react ion, Unkno wn; Not Available [facility] 4 01:08:10 013812 tramadol Not available other Not available Not available 09/22/2023 70955 RxNorm React ion: other react ion, Unkno wn; Not Available [facility] 4 01:08:11 Medications Name Sig Start Date Stop Date Status Note LastModified by Organization Details LastModified Time cyclobenz aprine 10 mg tablet 05/26 completed Medicati on ID: [id number] D uration Value: 20 Brand Name: cycloben zaprine Send Method: E-Prescr ibed Sub s Allowed: subs OK Speci al Instruct ion: TK 1 T PO TID Medi cationGe nericNam e: cycloben zaprine Not Available Not Available Not Available oxybutyni n chloride ER 15 mg tablet,ex tended release 24 hr 10/28 completed Medicati on ID: [id number] D uration Value: 30 Reason: () Brand Name: oxybutyn in chloride Send Method: E-Prescr ibed Sub s Allowed: subs OK Speci al Instruct ion: TK 1 T PO QD Medic ationGen ericName : oxybutyn in chloride Not Available Not Available Not Available ketoconaz ole 2 % shampoo APPLY TOPICALL Y TWO TIMES A WEEK active Not Available Not Available No t Available albuterol sulfate 2.5 mg/3 mL (0.083 %) solution for nebulizat ion USE 1 VIAL VIA NEBULIZE R EVERY 6 HOURS NEEDED FOR WHEEZING OR SHORTNES S OF BREATH active Not Available Not Available No t Available ibuprofen 800 mg tablet TAKE 1 TABLET BY MOUTH THREE TIMES DAILY WITH FOOD active Not Available Not Available No t Available phenazopy ridine 200 mg tablet 10/28 completed Medicati on ID: [id number] D uration Value: 5 Reason: () Brand Name: phenazop yridine Send Method: E-Prescr ibed Sub s Allowed: subs XAVIER Cortez al Instruct ion: TK 1 T PO TID AFTER MEALS PRN Medi cationGe nericNam e: phenazop yridine Not Available Not Available Not Available prednison e 20 mg tablet active Not Available Not Available Not Available topiramat e 25 mg tablet 11/19 completed Medicati on ID: [id number] Du ration Value: 28 Reason: () Brand Name: topirama te Send Method: E-Prescr ibed Sub s Allowed: subs XAVIER Cortez al Instruct ion: TK 1 T PO HS FOR 14 DAYS THEN INCREASE TO 2 TS HS Medic ationGen ericName : topirama te Not Available Not Available Not Available metronida zole 500 mg tablet 05/26 completed Medicati on ID: [id number] B rand Name: metronid azole Se nd Method: E-Prescr ibed Sub s Allowed: subs XAVIER Cortez al Instruct ion: TAKE 1 TABLET BY MOUTH TWICE DAILY WITH FOOD FOR 7 DAYS. AVOID ALCOHOL AND VINEGAR PRODUCTS Medicat ionGener icName: metronid azole Not Available Not Available Not Available Ciloxan 0.3 % eye drops 05/26 completed Medicati on ID: [id number] Du ration Value: 5 Prescri bed By Name: CRISTIN Mao nd Name: Ciloxan Send Method: E-Prescr ibed Sub s Allowed: subs XAVIER Cortez al Instruct ion: Instill 4 drops twice a day into the affected ear Medi cationGe nericNam e: Ciloxan Not Available Not Available Not Available acetamino phen 500 mg tablet TAKE 2 TABLETS BY MOUTH EVERY 8 HOURS active Not Available Not Available No t Available triamcino lone acetonide 0.1 % topical cream APPLY TOPICALL Y TO THE AFFECTED AREA IN THE MORNING AND AT BEDTIME NEEDED FOR PAIN OR SWELLING active Not Available Not Available No t Available magnesium oxide 400 mg (241.3 mg magnesium ) tablet 10/28 completed Medicati on ID: [id number] D uration Value: 30 Reason: () Brand Name: tom trimble oxide Se nd Method: E-Prescr ibed Sub s Allowed: subs OK Speci al Instruct ion: TK 1 T PO QD Medic ationGen ericName : tom trimble oxide Not Available Not Available Not Available lorazepam 0.5 mg tablet 05/26 completed Medicati on ID: [id number] B rand Name: lorazepa m Send Method: E-Prescr ibed Sub s Allowed: subs OK Speci al Instruct ion: TAKE 1 TABLET BY MOUTH NEEDED FOR PANIC ATTACKS. MAXIMUM DAILY DOSE IS 1 TABLET M rupalo Miriic Name: lorazepa m Not Available Not Available Not Available metoclopr amide 5 mg tablet 09/24 completed Medicati on ID: [id number] B rand Name: metoclop ramide HCl Send Method: E-Prescr ibed Sub s Allowed: subs OK Speci al Instruct ion: TAKE 1 TABLET BY MOUTH TWICE DAILY NEEDED FOR NAUSEA M edicatio nGeneric Name: metoclop ramide HCl Not Available Not Available Not Available Naphcon-A 0.025 %-0.3 % eye drops 02/27 completed Not Available Not Available Not Available meclizine 25 mg tablet 09/24 completed Medicati on ID: [id number] B rand Name: meclizin e Send Method: E-Prescr ibed Sub s Allowed: subs OK Speci al Instruct ion: TAKE 1 TABLET BY MOUTH EVERY 8 HOURS NEEDED FOR DIZZINES S Medica tionGene ricName: meclizin e Not Available Not Available Not Available nortripty line 10 mg capsule 10/28 completed Medicati on ID: [id number] D uration Value: 28 Reason: () Brand Name: nortript yline Se nd Method: E-Prescr ibed Sub s Allowed: subs OK Medic ationGen ericName : nortript yline Not Available Not Available Not Available triamcino lone acetonide 0.1 % topical ointment APPLY TOPICALL Y TO THE AFFECTED AREA TWICE DAILY active Not Available Not Available No t Available clotrimaz ole-betam ethasone 1 %-0.05 % topical cream APPLY TOPICALL Y TO THE AFFECTED AREA TWICE DAILY active Not Available Not Available No t Available clotrimaz ole 1 % topical solution 05/26 completed Medicati on ID: [id number] Du ration Value: 14 Prescri bed By Name: Noble Martinez nd Name: clotrimajo fisher Sen d Method: E-Prescr ibed Sub s Allowed: subs OK Speci al Instruct ion: 4 drops to affected ear three times a day Medi cationGe nericNam e: clotrima zole Not Available Not Available Not Available fluocinol one 0.01 % topical body oil APPLY TOPICALL Y TO SCALP TWICE A WEEK BEFORE WASHING HAIR LEAVE ON SCALP OVERNIGH T active Not Available Not Available No t Available fluoxetin e 10 mg capsule 10/27 completed Medicati on ID: [id number] Du ration Value: 30 Brand Name: fluoxeti ne Send Method: E-Prescr ibed Sub s Allowed: subs OK Speci al Instruct ion: TK ONE C PO QD Medic ationGen ericName : fluoxeti ne Not Available Not Available Not Available monteluka st 10 mg tablet TAKE 1 TABLET BY MOUTH EVERY EVENING active Not Available Not Available No t Available epinephri ne 0.3 mg/0.3 mL injection , auto-inje ctor Administ er active Medicati on ID: [id number] B rand Name: epinephr ine Send Method: E-Prescr ibed Sub s Allowed: subs OK Speci al Instruct ion: INJECT IN THE MUSCLE ONCE NEEDED FOR ANAPHYLA XIS Medi cationGe nericNam e: epinephr ine Not Available Not Available Not Available ibuprofen 600 mg tablet 11/19 completed Medicati on ID: [id number] Du ration Value: 22 Reason: () Brand Name: ibuprofe n Send Method: E-Prescr ibed Sub s Allowed: subs OK Speci al Instruct ion: TK 1 T PO Q 6 H NEEDED FOR PAIN WITH FOOD Med icationG enericNa me: ibuprofe n Not Available Not Available Not Available noreperico colon (contrace ptive) 0.35 mg tablet TAKE 1 TABLET BY MOUTH DAILY active Not Available Not Available No t Available fluticaso ne propionat e 50 mcg/actua tion nasal spray,edil pension SHAKE LIQUID AND USE 2 SPRAYS IN EACH NOSTRIL EVERY DAY active Not Available Not Available No t Available loratadin e 10 mg tablet 05/26 completed Medicati on ID: [id number] D uration Value: 30 Brand Name: loratadi ne Send Method: E-Prescr ibed Sub s Allowed: subs OK Speci al Instruct ion: TK 1 T PO QD Medic ationGen ericName : loratadi ne Not Available Not Available Not Available Ventolin HFA 90 mcg/actua tion aerosol inhaler INHALE 1 TO 2 PUFFS BY MOUTH EVERY 4 TO 6 HOURS NEEDED active Not Available Not Available No t Available nitrofura ntoin monohydra te/macroc rystals 100 mg capsule 10/28 completed Medicati on ID: [id number] D uration Value: 5 Reason: () Brand Name: nitrofur antoin monohyd/ m-cryst Send Method: E-Prescr ibed Sub s Allowed: subs OK Speci al Instruct ion: TK 1 C PO Q 12 H WF Medic ationGen ericName : nitrofur antoin monohyd/ m-cryst Not Available Not Available Not Available duloxetin e 20 mg capsule,d elayed release 09/24 completed Medicati on ID: [id number] B rand Name: duloxeti ne Send Method: E-Prescr ibed Sub s Allowed: subs OK Speci al Instruct ion: TK 1 C PO QD Medic ationGen ericName : duloxeti ne Not Available Not Available Not Available duloxetin e 30 mg capsule,d elayed release 05/26 completed Medicati on ID: [id number] B rand Name: duloxeti ne Send Method: E-Prescr ibed Sub s Allowed: subs OK Speci al Instruct ion: TAKE 1 CAPSULE BY MOUTH TWICE DAILY Me dication GenericN rahul: duloxeti ne Not Available Not Available Not Available selenium sulfide 2.25 % shampoo 11/19 completed Medicati on ID: [id number] Du ration Value: 30 Reason: () Brand Name: selenium sulfide Send Method: E-Prescr ibed Sub s Allowed: subs OK Speci al Instruct ion: APPLY TOPICALL Y AA Q WEEK Med icationG enericNa me: selenium sulfide Not Available Not Available Not Available Flovent HFA 110 mcg/actua tion aerosol inhaler 09/24 completed Medicati on ID: [id number] D uration Value: 30 Brand Name: Flovent HFA Send Method: E-Prescr ibed Sub s Allowed: subs OK Speci al Instruct ion: INHALE 2 PUFFS PO BID Medi cationGe nericNam e: Flovent HFA Not Available Not Available Not Available Flovent HFA 220 mcg/actua tion aerosol inhaler 08/06 completed Medicati on ID: [id number] B rand Name: Flovent HFA Send Method: E-Prescr ibed Sub s Allowed: subs OK Speci al Instruct ion: INHALE 1 PUFF BY MOUTH TWICE DAILY Me dication GenericN rahul: Flovent HFA Not Available Not Available Not Available Advair HFA 115 mcg-21 mcg/actua tion aerosol inhaler INHALE 2 PUFFS BY MOUTH TWICE DAILY 02/27 completed Not Available Not Available Not Available Advair HFA 230 mcg-21 mcg/actua tion aerosol inhaler INHALE 2 PUFFS BY MOUTH IN THE MORNING AND AT BEDTIME. RINSE MOUTH WITH WATER AFTER USE FOR AFTERTAS TE AND INCIDENC E OF CANDIDIA SIS. DO NOT SWALLOW active Not Available Not Available No t Available FeroSul 325 mg (65 mg iron) tablet 05/26 completed Not Available Not Available Not Available diclofena c 1 % topical gel APPLY TOPICALL Y ONCE A WEEK active Not Available Not Available No t Available Vitals Date Recorded Body height Body weight Provider Name and Address Organization Details Last Updated DateTime 05/26/2024 154.94 cm 21973.78 g Parvin Garcia [place] - [facility] 05/26/2024 14:04:34 Date Recorded Body height Body mass index (BMI) Body weight Provider Name and Address Organization Details Last Updated DateTime 11/24/2023 154.94 cm 30.2 kg/m2 73362.78 g Kenneth Vega [place] - [facility] 11/24/2023 13:12:38 Date Recorded Body height Provider Name an d Address Organization Details Last Updated DateTime 02/27/2025 154.94 cm Parvin Garcia [place] - [facility] 02/27/2025 09:20:42 Social History Question Answer Notes LastModified by Organization D etails LastModified Time 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 None [email or web address] Information not available 02/27/2025 Do You Have Any Pets? No [email or web address] Information not available 02/27/2025 Are You Passively Exposed To Smoke? Yes [email or web address] Information no t available 02/27/2025 Are There Any Smokers In Your House? No [email or web address] Information not available 02/27/2025 Sex: Unknown Functional Status Question Answer Note LastModified by Organizat ion Details LastModified Time Do you use any illicit or recreational drugs? No Information not available 02/27/2025 Do you or have you ever used any other forms of tobacco or nicotine? No [email or web address] Information not available 02/27/2025 What is your level of alcohol consumption? None [email or web address] Information not available 02/27/2025 What type of noise exposure are you exposed to? Other [email or web address] Information not available 02/27/2025 Mental Status None recorded. Family History Nothing Reported. Medical History Condition Response Allergies/Hayfever N Heart Problems N Anxiety N Tonsil Infections N Emphysema N Migraines Y Thyroid Problems N Glaucoma N Developmental Delay N Depression N COPD N Nasal or Sinus Problems Y Anemia N Immune System Disorder N Anesthesia Complications N Heart Attack ([place]) N Other Skin Condition N Diabetes N Rhinitis N Bleeding Disorder N Food Allergy Y Hearing Loss N Arthritis N Hyperlipidemia N Cancer N Stroke N Dementia N Nasal polyps N Asthma Y Sleep Disorder N High Cholesterol N GERD/Reflux N Liver Disease N Headaches N Fibromyalgia Y Hypertension N Speech Delay N Kidney Disease N Gynecological HistoryNo gynecological history recorded. Obstetrics History GPAL:G 0 P 0 0 0 0 Past Encounters Encounter ID Performer Location Encounter Start Date Encounter Closed Date Diagnosis/Indication Diagnosis SNOMED-CT Code Diagnosis ICD10 Code Diagnosis IMO Codes Diagnosis Note [id number] PARRISH RIVAS PA-C [facility] [address] [place] [address] 11/24/2023 12:05:19 11/24/2023 14:05:25 Chronic mastoiditis 77955899 H70.11 Impacted c erumen in left ear 1622094509 681052 H61.22 [id number] АЛЕКСАНДР VANG MD [facility] [address] [place] [address] 05/26/2024 13:58:57 05/26/2024 14:55:50 Postmastoidectomy complication 01701083 H95.191 Referred o talgia of right ear 7428611959 882590 H92.01 M26.621 M79.11 The patient complains of chronic right-side d periauricu lar discomfort . Physical exam reveals no identifiab le source of these symptoms involving the auricle, external auditory canal, or tympanic membrane. Audiometri c testing and tympanomet ry are similarly unrevealin g. Furthermor e, examinatio n was positive for crepitus and tenderness of the right jaw joint and chanel-TMJ musculatur e. The patient's periauricu lar discomfort is most likely consistent with intermitte nt inflammati on of the jaw joint or spasm of the surroundin g musculatur e. This is likely exacerbate d by her underlying jaw and dental pathology, as well as her dental clenching and grinding.. I recommende d the patient use light massage, warm compresses and anti-infla mmatories for symptomati c management . Stressed chewing evenly on both sides of the mouth to keep from overworkin g the jaw joint. Use soft food diet as needed. Jaw Joint Program informatio n sheet was shared. If this treatment plan is ineffectiv e, recommend follow up with their dentist. Referral to physical therapist who specialize s in TMJ disorders could also be considered . Patient should follow-up with her jaw surgeon. Impacted c erumen in left ear 9184108054 137197 H61.22 [id number] АЛЕКСАНДР VANG MD [facility] [address] [place] [address] 02/27/2025 09:05:00 02/27/2025 09:59:43 Postmastoidectomy complication 72437632 H95.191 Impacted c erumen in left ear 9094666409 253294 H61.22 Allergic rhinitis 481153 04 J30.89 Patient asked about getting refill for her EpiPen. In the absence of anaphylact ic triggers and in the absence of active allergy treatment, she does not need an EpiPen, and I explained in detail why this is the case. Health Concerns Section Related Observation LastModified by Organization Detai ls LastModified Time None Recorded Concern Status LastModified by Organization Details LastModified Time None Recorded Advance Directives Directive None Recorded Payers Insurance Date Sequence Insurance Name Policy Number Policy Kwong Covered Member ID Kwong Member ID Guarantor Name 02/27/2025 1 [place] [facility] Nadiya Mccrary [id number] Nadiya Mccrary Notes Date Note Type Note Provider Name and Address Organization Details Recorded Time 11/24/2023 text/html ROS as noted in the HPI 48-year-old female with history of right canal wall down mastoidectomy presents for mastoid debridement. No drainage or hearing changes since last visit. АЛЕКСАНДР VANG MD [address] [place] [address], [phone], [facility] - [facility] 11/24/2023 16:59:06 05/26/2024 text/html Pt with hx of right modified radical mastoidectomy and meatoplasty performed 04/23/12. She returns for reevaluation and debridement today. She has no pain or discharge patient has been having preauricular pain on the right intermittently since our last visit. Patient does clench and grind her teeth. She has been told that she needs surgery on her jaw but she has not done this yet. АЛЕКСАНДР VANG MD [address] [place] [address],[address], [address], [facility] 05/26/2024 14:56:14 02/27/2025 text/html Pt with hx of right modified radical mastoidectomy and meatoplasty performed 04/23/12. She returns for reevaluation and debridement today. She feels like there has been liquid coming out of the right ear for the last 8 months. Patient has some underlying jaw joint issues which causes her intermittent periauricular discomfort.Patient also has a history of initiating allergy injections back in 2019 and was asking whether she needs a refill for EpiPen. She does not have any anaphylactic triggers АЛЕКСАНДР VANG MD [address] [place] [address],[place] [address], [place], [address], [place] - [facility] 02/27/2025 10:01:06 OBGyn Episode No OBEpisode recorded.
--- OUTSIDE RECORDS SUMMARY | 2025-03-23 12:35 | XMS_ITS | Continuity of Care Document ---
Author Organization [facility] - [facility], [facility] Address [address] [place] [address] Care Team Providers Care Community Health Promoter Name Role Phone MICHAEL JEAN-BAPTISTE Primary Care Provider Assessment Encounter Date Assessment Date Assessment LastModified by Organization Details LastModified Time 02/27/2025 02/27/2025 Pt with hx of right modified radical mastoidectomy and meatoplasty performed 04/23/12. She returns for reevaluation and debridement today. Dried debris was removed from right-sided cavity without complication today. There is no evidence of liquid or drainage on the right. Left-sided cerumen impaction removed today. Follow up in 9 months for reevaluation and routine debridement [email or web address] Not available 02/26/2025 21:07:42 Plan of Treatment [...] Details Recorded Time Choleste atoma of attic [id number] Completed 201312/11/2023 Choleste atoma of attic; Note: Date Diagnose d: 05/02/20 14 11:05 AM (385.31) Not Available [facility] 4 02:59:16 Chronic mastoidi tis 00118939 Active 2013 Chronic mastoidi tis; Note: Date Diagnose d: 05/02/20 14 11:05 AM (383.1) Note: Date Diagnose d: 05/02/20 14 11:05 AM (383.1) Not Available [facility] 4 01:08:52 Migraine variants 925499465 Active 2014 Migraine variant; Note: Date Diagnose d: 5 9:16 AM (346.20) Not Available [facility] 4 02:59:15 Vertigo of central origin 68170766 Active 2014 Vertigo of central origin; Note: Date Diagnose d: 5 9:16 AM (386.2) Not Available [facility] 4 02:59:15 Epidermo id cyst of skin 222271324 Active 2014 Sebaceou s cyst; Conditio n: improved Note: Date Diagnose d: 05/02/20 14 11:06 AM (706.2) Not Available [facility] 4 02:59:13 Chronic mycotic otitis externa 187313452 Active 2014 Chronic mycotic otitis externa; Note: Date Diagnose d: 5 9:25 AM (380.15) Not Available [facility] 4 02:59:16 Jaw pain 739020171 Active 2015 Periauri cular pain of TMJ origin; Note: Date Diagnose d: 5 9:26 AM (784.92) ; Start Date : 11/29/19 15 Jaw pain; Note: Date Diagnose d: 6 9:14 AM (R68.84) [mapped from ICD9 code: 784.92] Not Available [facility] 4 02:59:15 Migraine 83676347 Active 2015 Other migraine , not intracta ble, without status migraino edil; Note: Date Diagnose d: 6 9:14 AM (G43.809 ) [mapped from ICD9 code: 346.20] Not Available [facility] 4 02:59:14 Conducti ve hearing loss, bilatera l 278710497 Active 2015 Conducti ve hearing loss, bilatera l; Note: Date Diagnose d: 05/02/20 14 11:05 AM (389.06) ; Start Date : 05/02/20 14 Condu ctive hearing loss, bilatera l; Note: Date Diagnose d: 6 9:14 AM (H90.0) [mapped from ICD9 code: 389.06] Not Available [facility] 4 02:59:14 Bilatera l temporom andibula r joint pain 82678712822 432020 Active 2016 Arthralg ia of bilatera l temporom andibula r joint; Note: Date Diagnose d: 7 8:31 AM (M26.623 ) Not Available [facility] 4 02:59:13 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 Other disorder s followin g [...] Start Date : 05/22/19 16 Not Available [facility] 4 02:59:16 Impacted cerumen in left ear 71725375481 93875 Active 2016 Impacted cerumen, left ear; Note: Date Diagnose d: 11/13/2016 9:10 AM (H61.22) Not Available [facility] 4 02:59:14 Tinnitus of right ear 09048880686 08 Active 2016 Tinnitus , right ear; Note: Date Diagnose d: 04/30/20 17 9:46 AM (H93.11) Not Available [facility] 4 02:59:17 Follow-u p visit Active 2016 Encounte r for follow-u p examinat ion after complete d treatmen t for conditio ns other than malignan t neoplasm ; Note: Date Diagnose d: 04/30/20 17 2:54 PM (Z09) Not Available [facility] 4 02:59:16 Hypertro phy of nasal turbinat es 90555015 Active 2017 Hypertro phy of nasal turbinat es; Note: Date Diagnose d: 8 10:07 AM (J34.3) Not Available [facility] 4 02:59:14 Disorder of right Eustachi an tube 66645669914 33864 Active 2017 Other specifie d disorder s of Eustachi an tube, right ear; Note: Date Diagnose d: 8 10:04 AM (H69.81) Not Available [facility] 4 02:59:17 Allergic rhinitis 13719209 Active 2018 Allergic rhinitis : Due to other allergen ; Note: Date Diagnose d: 9 1:07 PM (477.8) Allerg ic rhinitis : Due to other allergen ; Note: Date Diagnose d: 8 2:01 PM (477.8) ; Start Date : 02/02/20 18 Peren nial allergic rhinitis ; Note: Date Diagnose d: 8 10:05 AM (J30.89) ; Start Date : 10/29/19 18 Not Available [facility] 4 02:59:15 Fibromya lgia 218538355 Active 2020 Fibromya lgia; Note: Date Diagnose d: 1 2:00 PM (M79.7) Not Available [facility] 4 02:59:14 Pain of right temporom andibula r joint 36372490160 962236 Active 2020 Arthralg ia of right temporom andibula r joint; Note: Date Diagnose d: 1 1:59 PM (M26.621 ) Not Available [facility] 4 02:59:17 Referred otalgia of right ear 62960831455 79997 Active 2024 АЛЕКСАНДР VANG MD [address] [place] [address], [place], [address] , [facility] - [facility] 5 14:53:46 Problem Notes None recorded. Procedures Surgical History Date Name Laterality Status Provider Name and Address Organization Details Recorded Time 5 Debridement of Mastoid Cavity right completed АЛЕКСАНДР VANG MD [address] [facility] [place] [address] [place] [address], [address], [facility] - [facility] 02/26/2025 21:07:42 5 Cerumen removal without microscope left completed АЛЕКСАНДР VANG MD [address] [facility],[address], [address], [facility] - [facility] 02/26/2025 21:07:42 5 Debridement of Mastoid Cavity right completed АЛЕКСАНДР VANG MD [address] [facility],[address], [address], [facility] - [facility] 05/25/2024 21:41:58 5 Cerumen removal without microscope left completed АЛЕКСАНДР VANG MD [address] [facility],[address], [address], [facility] - [facility] 05/26/2024 14:54:58 4 Debridement of Mastoid Cavity right completed PARRISH RIVAS PA-C [address] [facility],[address], [address], [facility] - [facility] 11/24/2023 14:30:12 4 Cerumen removal without microscope left completed PARRISH RIVAS PA-C [address] [facility],[address], [address], [facility] - [facility] 11/24/2023 14:29:38 Imaging Results None recorded. Procedure Notes None recorded. Medical Equipment None Reported. Allergies Allergen ID Allergen Name Allergen Category Reaction Reaction Severity Criticality Documentation Date Start Date Code Code System Note Provider Name and Address Organization Details Recorded Time 300919 meperidin e hydrochlo ride medicatio n other Not available Not available 09/22/2023 39349 5 RxNorm React ion: unkno wn, unspe cifie d;; Not Available [facility] 4 01:08:10 195650 Cipro medicatio n other Not available Not available 09/22/202302758 3 RxNorm React ion: other react ion, Unkno wn; Not Available [facility] 4 01:08:10 754030 tramadol Not available other Not available Not available 09/22/2023 89266 RxNorm React ion: other react ion, Unkno wn; Not Available [facility] 4 01:08:11 Medications Name Sig Start Date Stop Date Status Note LastModified by Organization Details LastModified Time cyclobenz aprine 10 mg tablet 05/26 completed Medicati on ID: [id number] D uration Value: 20 Brand Name: cycloberomeo zaprine Send Method: E-Prescr ibed Sub s Allowed: subs OK Speci al Instruct ion: TK 1 T PO TID Medi cationGe nericNam e: cycloben zaprine Not Available Not Available Not Available oxybutyni n chloride ER 15 mg tablet,ex tended release 24 hr 10/28 completed Medicati on ID: [id number] D uration Value: 30 Reason: () Brand [...] mg tablet 10/28 completed Medicati on ID: [id number] D uration Value: 5 Reason: () Brand [...] mg tablet 11/19 completed Medicati on ID: [id number] Du ration Value: 28 Reason: () Brand Name: topirama te Send Method: E-Prescr ibed Sub s Allowed: subs OK Speci al Instruct ion: TK 1 T PO HS FOR 14 DAYS THEN INCREASE TO 2 TS HS Medic ationGen ericName : topirama te Not Available Not Available Not Available metronida zole 500 mg tablet 05/26 completed Medicati on ID: [id number] B rand Name: metronid azole Se nd Method: E-Prescr ibed Sub s Allowed: subs OK Speci al Instruct ion: TAKE 1 TABLET BY MOUTH TWICE DAILY WITH FOOD FOR 7 DAYS. AVOID ALCOHOL AND VINEGAR PRODUCTS Medicat ionGener icName: metronid azole Not Available Not Available Not Available Ciloxan 0.3 % eye drops 05/26 completed Medicati on ID: [id number] Du ration Value: 5 Prescri bed By Name: CRISTIN Mao nd Name: Ciloxan Send Method: E-Prescr ibed Sub s Allowed: subs OK Speci al Instruct ion: Instill 4 drops twice [...] ) tablet 10/28 completed Medicati on ID: [id number] D uration Value: 30 Reason: () Brand Name: magnesiu m oxide Se nd Method: E-Prescr ibed Sub s Allowed: subs OK Speci al Instruct ion: TK 1 T PO QD Medic ationGen ericName : magnesiu m oxide Not Available Not Available Not Available lorazepam 0.5 mg tablet 05/26 completed Medicati on ID: [id number] B rand Name: lorazepa m Send Method: E-Prescr ibed Sub s Allowed: subs OK Speci al Instruct ion: TAKE 1 TABLET BY MOUTH NEEDED FOR PANIC ATTACKS. MAXIMUM DAILY DOSE IS 1 TABLET M rupalo nGeneric Name: lorazepa m Not Available Not Available Not Available metoclopr amide 5 mg tablet 09/24 completed Medicati on ID: [id number] B rand Name: metoclop ramide HCl Send [...] mg tablet 09/24 completed Medicati on ID: [id number] B rand Name: meclizin e Send Method: E-Prescr ibed Sub s Allowed: subs OK Speci al Instruct ion: TAKE 1 TABLET BY MOUTH EVERY 8 HOURS NEEDED FOR DIZZINES S Medica tionGene ricName: meclizin e Not Available Not Available Not Available nortripty line 10 mg capsule 10/28 completed Medicati on ID: [id number] D uration Value: 28 Reason: () Brand [...] topical solution 05/26 completed Medicati on ID: [id number] Du ration Value: 14 Prescri bed By Name: Noble Martinez nd Name: clotrima zole Sen d Method: E-Prescr ibed Sub s [...] mg capsule 10/27 completed Medicati on ID: [id number] Du ration Value: 30 Brand Name: fluoxeti [...] ctor Administ er active Medicati on ID: [id number] B rand Name: epinephr ine Send Method: E-Prescr ibed Sub s Allowed: subs OK Speci al Instruct ion: INJECT IN THE MUSCLE ONCE NEEDED FOR ANAPHYLA XIS Medi cationGe nericNam e: epinephr ine Not Available Not Available Not Available ibuprofen 600 mg tablet 11/19 completed Medicati on ID: [id number] Du ration Value: 22 Reason: () Brand Name: ibuprofe n Send Method: E-Prescr ibed Sub s Allowed: subs OK Speci al Instruct ion: TK 1 T PO Q 6 H NEEDED FOR PAIN WITH FOOD Med icationG enericNa me: ibuprofe n Not Available Not Available Not Available norethind darlene (contrace ptive) 0.35 mg tablet TAKE 1 TABLET BY MOUTH DAILY active Not Available Not Available No t Available fluticaso ne propionat e 50 mcg/actua tion nasal spray,edil pension SHAKE LIQUID AND USE 2 SPRAYS IN EACH NOSTRIL EVERY DAY active Not Available Not Available No t Available loratadin e 10 mg tablet 05/26 completed Medicati on ID: [id number] D uration Value: 30 Brand Name: loratadi [...] mg capsule 10/28 completed Medicati on ID: [id number] D uration Value: 5 Reason: () Brand Name: nitrofur antoin monohyd/ m-cryst Send Method: E-Prescr ibed Sub s Allowed: subs OK Speci al Instruct ion: TK 1 C PO Q 12 H WF Medic ationGen ericName : nitrofur antoin monohyd/ m-cryst Not Available Not Available Not Available duloxetin e 20 mg capsule,d elayed release 09/24 completed Medicati on ID: [id number] B rand Name: duloxeti ne Send Method: E-Prescr ibed Sub s Allowed: subs XAVIER Speci al Instruct ion: TK 1 C PO QD Medic ationGen ericName : duloxeti ne Not Available Not Available Not Available duloxetin e 30 mg capsule,d elayed release 05/26 completed Medicati on ID: [id number] B rand Name: duloxeti ne Send Method: E-Prescr ibed Sub s Allowed: subs XAVIER Speci al Instruct ion: TAKE 1 CAPSULE BY MOUTH TWICE DAILY Me dication GenericN rahul: duloxeti ne Not Available Not Available Not Available selenium sulfide 2.25 % shampoo 11/19 completed Medicati on ID: [id number] Du ration Value: 30 Reason: () Brand Name: selenium sulfide Send Method: E-Prescr ibed Sub s Allowed: subs OK Speci al Instruct ion: APPLY TOPICALL Y AA Q WEEK Med icationG enericNa me: selenium sulfide Not Available Not Available Not Available Flovent HFA 110 mcg/actua tion aerosol inhaler 09/24 completed Medicati on ID: [id number] D uration Value: 30 Brand Name: Flovent HFA Send Method: E-Prescr ibed Sub s Allowed: subs OK Speci al Instruct ion: INHALE 2 PUFFS PO BID Medi cationGe nericNam e: Flovent HFA Not Available Not Available Not Available Flovent HFA 220 mcg/actua tion aerosol inhaler 08/06 completed Medicati on ID: [id number] B rand Name: Flovent HFA Send Method: [...] t Available Vitals Date Recorded Body height Provider Name an d Address Organization Details Last Updated DateTime 02/27/2025 154.94 cm Parvin Garcia [place] - [facility] 02/27/2025 09:20:42 Social History Question Answer Notes LastModified by Organization D etails LastModified Time What Type Of Patient Safety Tech Do You Use? None [email or web address] Information not available 02/27/2025 Do You Have Any Pets? No [email or web address] Information not available 02/27/2025 Are You Passively Exposed To Smoke? Yes [email or web address] Information no t available 02/27/2025 Are There Any Smokers In Your House? No [email or web address] Information not available 02/27/2025 Sex: Unknown Functional Status Question Answer Note LastModified by Organizat ion Details LastModified Time Do you use any illicit or recreational drugs? No [email or web address] Information not available 02/27/2025 Do you or have you ever used any other forms of tobacco or nicotine? No [email or web address] Information not available 02/27/2025 What is your level of alcohol consumption? None [email or web address] Information not available 02/27/2025 What type of noise exposure are you exposed to? Other [email or web address] Information not available 02/27/2025 Mental Status None recorded. Family History Nothing Reported. Medical History Condition Response Allergies/Hayfever N Heart Problems N Anxiety N Tonsil Infections N Emphysema N Migraines Y Thyroid Problems N Glaucoma N Developmental Delay N Depression N COPD N Nasal or Sinus Problems Y Anemia N Immune System Disorder N Anesthesia Complications N Heart Attack ([place]) N Other Skin Condition N Diabetes N [...] ICD10 Code Diagnosis IMO Codes Diagnosis Note [id number] АЛЕКСАНДР VANG MD [facility] [address] [address] 02/27/2025 09:05:00 02/27/2025 09:59:43 Postmastoidectomy complication 23717912 H95.191 Impacted c erumen in left ear [id number] 714331 H61.22 Allergic rhinitis 842778 04 J30.89 Patient asked about getting refill [...] by Organization Details LastModified Time None Recorded Payers Encounter Date Sequence Insurance Name Policy Number Policy Kwong Covered Member ID Kwong Member ID Guarantor Name 02/27/2025 1 [place] [facility] Nadiya Mccrary [id number] Nadiya Mccrary Notes Date Note Type Note Provider Name and Address Organization Details Recorded Time 02/27/2025 text/html Pt with hx of right [...] have any anaphylactic triggers АЛЕКСАНДР VANG MD [address] [place] [address], [address], [place] - [facility] 02/27/2025 10:01:06 OBGyn Episode No OBEpisode recorded.
--- OUTSIDE RECORDS SUMMARY | 2025-03-23 12:35 | XMS_ITS | Encounter Summary ---
Author Organization [employer] Address [address] [facility] 7[address] [place] [address] Care Team Providers Care Scout Executive Name Role Phone Veronika Blanco MD Primary Care Provide r Reason for Visit * Reason Onset Date Comments Med Refill 08/19/2023 Encounter Details Date Type Department Care Team (Late st Contact Info) Description 08/19/2023 Refill [facility] [address] [place] [address] Tara Cervantes, [address] [place], [place] [phone] Social History Tobacco Use Types Packs/Day Years [...] Description 04/25/2025 9:30 AM EST Office Visit [facility] MEDICINE [address] [place] [address] Veronika Blanco MD [address] [place] [address] 06/28/2025 2:00 PM EST Office Visit [facility] OPTOMETRY [address] [place] [address] Denilson, Olivia, OD [address] [place] [address] documented as of this encounter Visit Diagnoses Not on filedocumented in this encounter Additional Health Concerns Assessment Noted Time PHQ-9 Depression Total Score: 0 09/25/19 23 10:07 AM EDT documented as of this encounter Care Teams Scout Executive Relationship Specialty Start Date End Date Veronika Blanco MD [address] [place] [address] PCP - General Family Medicine 02/28/20 documented as of this encounter
--- OUTSIDE RECORDS SUMMARY | 2025-03-23 12:35 | XMS_ITS | Encounter Summary ---
Author Organization [employer] Address [address] [facility] [address] [place] [address] Care Team Providers Care Certified Hand Therapist Name Role Phone Veronika Blanco MD Primary Care Provide r Reason for Visit * Reason Onset Date Comments Med Refill 09/09/2023 Encounter Details Date Type Department Care Team (Late st Contact Info) Description 09/09/2023 Refill [facility] MEDICINE [address] [place], [place] [phone] Veronika Blanco MD [address] [place], [place] [phone] Social History Tobacco Use Types Packs/Day Years [...] 9:30 AM EST Office Visit [facility] MEDICINE [address] [place] [address] Veronika Blanco MD [address] [place] [address] 06/28/2025 2:00 PM EST Office Visit [facility] OPTOMETRY [address] [place], [place] [phone] Denilson, Olivia, OD [address] [place] [address] documented as of this encounter Visit Diagnoses Not on filedocumented in this encounter Additional Health Concerns Assessment Noted Time PHQ-9 Depression Total Score: 0 09/25/19 23 10:07 AM EDT documented as of this encounter Care Teams Certified Hand Therapist Relationship Specialty Start Date End Date Veronika Blanco MD [address] [place] [phone] PCP - General Family Medicine 02/28/20 documented as of this encounter
--- OUTSIDE RECORDS SUMMARY | 2025-03-23 12:35 | XMS_ITS | Encounter Summary ---
Author Organization [employer] Address [address] [facility] [address] [place] [address] Care Team Providers Care First Crusher Name Role Phone Veronika Blanco MD Primary Care Provide r Reason for Visit * Reason Onset Date Comments Med Refill 08/19/2023 Encounter Details Date Type Department Care Team (Late st Contact Info) Description 08/19/2023 Refill [facility] MEDICINE [address] [place], [place] [phone] Tara Cervantes DO [address] [place], [place] [phone] Right-sided chest pain Social History Tobacco Use [...] Description 04/25/2025 9:30 AM EST Office Visit [facility] MEDICINE [address] [place] [address] Veronika Blanco MD [address] [place] [address] 06/28/2025 2:00 PM EST Office Visit [facility] OPTOMETRY [address] [place] [address] Denilson, Olivia, OD [address] [place] [address] documented as of this encounter Visit Diagnoses Diagnosis Right-sided chest pain documented in this encounter Additional Health Concerns Assessment Noted Time PHQ-9 Depression Total Score: 0 09/25/19 23 10:07 AM EDT documented as of this encounter Care Teams First Crusher Relationship Specialty Start Date End Date Veronika Blanco MD [address] [place], [place] [phone] PCP - General Family Medicine 02/28/20 documented as of this encounter
--- OUTSIDE RECORDS SUMMARY | 2025-03-23 12:35 | XMS_ITS | Encounter Summary ---
Author Organization [employer] Address [address] [facility] [address] [place] [address] Care Team Providers Care Lease Purchase Truck Driver Name Role Phone Veronika Blanco MD Primary Care Provide r Reason for Visit * Reason Onset Date Comments Med Refill 10/11/2024 Encounter Details Date Type Department Care Team (Late st Contact Info) Description 10/11/2024 Refill [facility] MEDICINE [address] [place], [place] [phone] Tara Cervantes DO [address] [place], [place] [phone] Right-sided chest pain Social History Tobacco Use [...] Description 04/25/2025 9:30 AM EST Office Visit [facility] MEDICINE [address] [place] [address] Veronika Blanco MD [address] [place] [address] 06/28/2025 2:00 PM EST Office Visit [facility] OPTOMETRY [address] [place] [address] Denilson, Olivia, OD [address] [place] [address] documented as of this encounter Visit Diagnoses Diagnosis Right-sided chest pain documented in this encounter Additional Health Concerns Assessment Noted Time PHQ-9 Depression Total Score: 0 03/17/20 24 9:55 AM EST documented as of this encounter Care Teams Lease Purchase Truck Driver Relationship Specialty Start Date End Date Veronika Blanco MD [address] [place] [address] PCP - General Family Medicine 02/28/20 documented as of this encounter
--- OUTSIDE RECORDS SUMMARY | 2025-03-23 12:35 | XMS_ITS | Encounter Summary ---
Author Organization [employer] Address [address] [facility] 7t [place] [address] Care Team Providers Care Glass Rolling Machine Operator Name Role Phone Veronika Blanco MD Primary Care Provide r Reason for Visit * Reason Onset Date Comments Med Refill 09/09/2023 Encounter Details Date Type Department Care Team (Late st Contact Info) Description 09/09/2023 Refill [facility] [address] [place], [place] [phone] Veronika Blanco MD [address] [place], [place] [phone] Seborrheic dermatitis Social History Tobacco Use Types [...] Description 04/25/2025 9:30 AM EST Office Visit [facility] [address] [place] [address] Veronika Blanco MD [address] [place] [address] 06/28/2025 2:00 PM EST Office Visit [facility] [address] [place] [address] Denilson, Olivia, OD [address] [place] [address] documented as of this encounter Visit Diagnoses Diagnosis Seborrheic dermatitis Unspecified seborrheic dermatitis documented in this encounter Additional Health Concerns Assessment Noted Time PHQ-9 Depression Total Score: 0 09/25/19 23 10:07 AM EDT documented as of this encounter Care Teams Glass Rolling Machine Operator Relationship Specialty Start Date End Date Veronika Blanco MD [address] [place] [address] PCP - General Family Medicine 02/28/20 documented as of this encounter
--- OUTSIDE RECORDS SUMMARY | 2025-03-23 12:36 | XMS_ITS | Clinical Summary ---
Author Organization [employer] Address [address] [facility] 7[address] [place] [address] Care Team Providers Care Manager Wastewater Name Role Phone Veronika Blanco MD Primary Care Provide r Allergies Active Allergy Reactions Criticality Noted Date Comments Ciprofloxacin 02/14/2019 Other reaction(s): shortness of breath, shortness of breath Meperidine 11/21/2011 Other reaction(s): vomiting Tramadol 02/14/2019 Other reaction(s): faints Medications DULoxetine (Cymbalta) [address] capsuleIndicatio ns:Fibromyalgia Take 1 capsule (30 mg) by mouth 2 times daily. Do not crush or chew. 60 capsule 1 3 Active famotidine (Pepcid) 20 MG tabletIndication s:Heartburn Take 1 tablet (20 mg) by mouth 2 times daily. 60 tablet 11 3 Active EPINEPHrine (Epipen) 0.3 MG/0.3ML injection syringe INJECT INTO THE MUSCLE NEEDED 2 Active fluticasone (Flonase) 50 MCG/ACT nasal spray SHAKE LIQUID AND USE 2 SPRAYS IN EACH NOSTRIL EVERY DAY 3 Active cetirizine (ZyrTEC) 10 MG tabletIndication s:Seasonal allergies Take 1 tablet (10 mg) by mouth in the morning. 30 tablet 2 3 Active benzonatate (Tessalon Perles) 100 MG capsuleIndicatio ns:Chronic cough Take 1 capsule (100 mg) by mouth if needed in the morning, at noon, and at bedtime for cough. Do not crush or chew. 60 capsule 3 Active triamcinolone (Kenalog) 0.1 % creamIndications :Seborrheic dermatitis APPLY TOPICALLY IN THE MORNING AND AT BEDTIME NEEDED FOR PAIN AND SWELLING 30 g 1 4 Active clotrimazole-bet amethasone (Lotrisone) creamIndications :Rash and nonspecific skin eruption APPLY TOPICALLY TO THE AFFECTED AREA TWICE DAILY 45 g 2 5 Active Acetaminophen Extra Strength 500 MG tablet TAKE 2 TABLETS BY MOUTH EVERY 8 HOURS 40 tablet 1 5 Active triamcinolone (Kenalog) 0.1 % ointmentIndicati ons:Seborrheic dermatitis APPLY TOPICALLY TO THE AFFECTED AREA TWICE DAILY 30 g 1 5 Active ketoconazole (NIZOral) 2 % shampooIndicatio ns:Seborrheic dermatitis APPLY TOPICALLY 2 TIMES A WEEK 240 mL 1 5 Active Diclofenac Sodium 1 % gelIndications:R ight-sided chest pain Apply 1 Application topically 1 (one) time per week. APPLY 2 GRAMS TOPICALLY IF NEEDED IN THE MORNING AND AT BEDTIME FOR PAIN 100 g 1 5 Active fluocinolone (Cardiff-Smoothe) 0.01 % external oilIndications:S eborrheic dermatitis APPLY TOPICALLY TO SCALP TWICE A WEEK BEFORE WASHING HAIR (LEAVE ON SCALP OVERNIGHT) 118.28 mL 1 5 Active ibuprofen 800 MG tablet TAKE 1 TABLET BY MOUTH THREE TIMES DAILY WITH FOOD 30 tablet 5 Active naphazoline-phen iramine (Naphcon-A) 0.025-0.3 % ophthalmic solution INSTILL 2 DROPS IN AFFECTED EYE(S) TWICE DAILY NEEDED 15 mL 5 Active albuterol (2.5 MG/3ML) 0.083% nebulizer solutionIndicati ons:Moderate persistent asthma with acute exacerbation USE 1 VIAL VIA NEBULIZER EVERY 6 HOURS NEEDED FOR WHEEZING OR SHORTNESS OF BREATH 90 mL 2 5 Active albuterol (Ventolin HFA) 108 (90 Base) MCG/ACT inhalerIndicatio ns:Moderate persistent asthma with acute exacerbation INHALE 1 TO 2 PUFFS BY MOUTH EVERY 4 TO 6 HOURS NEEDED 18 g 1 5 Active montelukast (Singulair) 10 MG tabletIndication s:Moderate persistent asthma with acute exacerbation TAKE 1 TABLET BY MOUTH EVERY EVENING 90 tablet 1 5 Active fluticasone-salm eterol (Advair) 230-21 MCG/ACT inhalerIndicatio ns:Moderate persistent asthma with acute exacerbation Inhale 2 puffs in the morning and at bedtime. Rinse mouth with water after use to reduce aftertaste and incidence of candidiasis. Do not swallow. 12 g 11 5 026 Active predniSONE (Deltasone) 20 MG tabletIndication s:Moderate persistent asthma with acute exacerbation Take 2 tablets (40 mg) by mouth Once per day for 5 days. 10 tablet 5 025 Active Problems Problem Noted Date Diagnosed Date [...] where discuss Continue to follow up with MODELING INSTRUCTOR Assessment & Plan (09/10/2023 4:21 PM EDT): Referral to MODELING INSTRUCTOR done Assessment & Plan (03/13/2023 11:49 AM EDT): F/u with MODELING INSTRUCTOR Generalized abdominal pain 12/16/2022 Low vision 12/16/2022 [...] Assessment & Plan (03/17/2024 1:06 PM EST): Tracey c/w same interventions Heartburn 09/24/2022 Assessment & [...] Team Description 02/20/2025 9:15 AM EDT Telemedicine [facility] [address] [place] [address] Veronika Blanco MD Dietary counseling; Exercise counseling; Moderate persistent asthma with acute exacerbation; Stress incontinence of urine; Uterine leiomyoma, unspecified location 02/20/2025 Travel 02/18/2025 Telephone [facility] [address] [place] [address] Veronika Blanco MD Chart Prep 02/13/2025 Travel 01/19/2025 Telephone [facility] [address] [place], [place] [phone] Veronika Blanco MD NOV RECALL from Last 3 Months Immunizations Immunization Administration [...] your housing situation today? I have jose sing 09/02/[address] you li [...] Description 04/25/2025 9:30 AM EST Office Visit [facility] [address] [place] [address] Veronika Blanco MD [address] [place], [place] [phone] 06/28/2025 2:00 PM EST Office Visit [facility] [address] [place], [place] [phone] Olivia Oreilly, OD [address] [place], [place] [phone] Health Maintenance Due Date Last Done Comments CT Colonography 1975 Colonoscopy 1975 Colorectal Cancer Screening 1975 FIT DNA/Cologuard 1977 FIT 1975 FOBT 1975 Sigmoidoscopy 1975 Disability Screening 1975 Family Planning (PISQ) 1992 Hepatitis B Vaccines (1 of 3 - 19+ 3-dose series) 1996 Pneumococcal Vaccine: Pediatrics (0 to 5 Years) and At-Risk Patients (6 to 49) Years (2 of 2 - PCV) 07/12/2011 07/11/2010, 07/11/2010 DTaP/Tdap/Td Vaccines (2 - Td or Tdap) 05/17/2024 05/17/2014, 01/21/2006 SDOH Screening 09/01/2024 09/02/2023 COVID-19 Vaccine (2 - 2024- season) 2025 11/17/2020 Influenza Vaccine (#1) 2025 9, 01/25/2017, 01/03/2016, Additional history exists Mammogram 02/15/2025 02/16/2024, 10/0 08/2022, 08/07/2022, Additional history exists Tobacco Screening 03/17/2025 03/17/2024 Alcohol/Substance Use Screening 02/20/2026 02/20/2025 Depression Screening 02/20/2026 02/20/2025, 02/21/20 25 Zoster Vaccines (1 of 2) 2027 Cervical Cancer Screening 09/20/2027 HPV/Cotest 09/20/2027 09/19/2022 Pap Smear 09/20/2027 09/19/2022 RSV Patients and Patients Aged 60 years or older (1 - 1-dose 75+ series) 2052 HIV Screening Completed 02/28/2025, 06/01/2020 Hepatitis C Screening Completed 02/28/2025 HIB Vaccines Aged Out No longer eligi [...] Procedure Name Priority Date/Time Associated Diagnosis Comments TSH W/REFLEX TO FT4 Routine 02/28/2025 1 1:16 AM EDT Uterine leiomyoma, unspecified location VITAMIN D,25-OH,TOTAL,IA Routine 02/28/2025 11:16 AM EDT Uterine leiomyoma, unspecified location LIPID PANEL, STANDARD Routine 02/28/2025 11:16 AM EDT Uterine leiomyoma, unspecified location HEPATITIS C AB W/REFL TO HCV RNA, QN, PCR Routine 02/28/2025 11:16 AM EDT Uterine leiomyoma, unspecified location HIV 1/2 ANTIGEN/ANTIBODY, FOURTH GENERATION W/RFL Routine 02/28/2025 11:16 AM EDT Uterine leiomyoma, unspecified location HEMOGLOBIN A1C Routine 02/28/2025 11:16 AM EDT Uterine leiomyoma, unspecified location COMPREHENSIVE METABOLIC PANEL Routine 02/28/2025 11:16 AM EDT Uterine leiomyoma, unspecified location CBC WITH AUTO DIFFERENTIAL Routine 02/28/2025 11:16 AM EDT Uterine leiomyoma, unspecified location BI MAMMOGRAM DIAGNOSTIC TOMOSYNTHESIS BILATERAL Routine 02/16/2024 10:35 AM EDT HM PAP/HPV Routine 09/19/2022 from Last 3 Months or Most Recently Relevant to Health Maintenance Results * Vitamin D, 25-Hydroxy, Total, Immunoassay (02/28/2025 11:16 AM EDT) Vitamin D 25-OH Total 31.4 >30 ng/mL [facility] Comment: Health Based Reference Values*< 20 ng/mL Kmmbxkqub02-69 ng/mL Insufficient> 30 ng/mL Sufficient*Glo WHITING. N Engl J Med. 2007;357:266-280There is no well-established upper level of normal vitamin Dlevels. Some laboratories use 50 ng/mL as an upper limit ofnormal. However, toxicity is patient-dependent and may occurat any level. Careful correlation with the patient'spresentation is necessary and, if there is concern forvitamin D toxicity, treatment should be consideredirrespective of the serum level.Care must be taken in interpreting Vitamin D results fromdifferent laboratories and methodologies. Published datademonstrated that results from patients undergoinghemodialysis may show a negative bias when tested withvarious automated 25-OH vitamin D assays when compared toLC-MS/MS.When testing samples from patients whose predominant form ofVitamin D is Vitamin D2, such as patients receiving VitaminD2 supplementation, results that are subtherapeutic shouldbe confirmed with another method such as LC-MS/MS. Blood Venous blood specimen / Unknown 02/28/2025 11:16 AM EDT 02/28/2025 1:28 PM EDT us Veronika Wilkerson MD LAB BLOOD ORDERABLES Final Result [facility] [address] [place], [place] [phone] * TSH with Reflex to Free T4 (02/28/2025 11:16 AM EDT) Pathologist [facility] TSH reflex Free T4 1.54 0.32 - 4.0 uIU/mL [facility] Blood Venous blood specimen / Unknown 02/28/2025 11:16 AM EDT 02/28/2025 1:28 PM EDT Veronika Wilkerson MD LAB BLOOD ORDERABLES Final Result [facility] [address] [place] [phone] * (ABNORMAL) CBC auto differential (02/28/2025 11:16 AM EDT) Pathologist [facility] White Blood Count 12.7(H) 4.8 - 10.8 X10*3/uL [facility] Red Blood Count 4.46 4.20 - 5.50 X10*6/uL [facility] Hemoglobin 12.6 12.0 - 16.0 g/dl [facility] Hematocrit 38.6 37.0 - 47.0 % [facility] Mean Corpuscular Volume 86.5 80.0 - 98.0 fL [facility] Mean Corpuscular Hemoglobin 28.3 27.0 - 33.0 pg [facility] Mean Corpuscular HGB Conc 32.6 31.0 - 35.0 g/dl [facility] Red Cell Distribution Width 14.5 11.0 - 16.0 % [facility] Platelet Count 435(H) 160 - 400 X10*3/uL [facility] Mean Platelet Volume 9.9 9.4 - 12.3 fL [facility] Neutrophils Percent Auto 61.9 45 - 73 % [facility] Imm Gran Pct Auto 1.2(H) 0.0 - 0.4 % [facility] Lymphocytes Percent Auto 25.0 20 - 40 % [facility] Monocytes Percent Auto 8.6 2 - 11 % [facility] Eosinophils Percent Auto 2.7 0 - 4 % [facility] Basophils Percent Auto 0.6 0 - 2 % [facility] NRBC Pct Auto 0.0 0.0 - 0.2 /100WBC [facility] Neutrophils Absolute Auto 7.9 2.0 - 8.3 x10*3/uL [facility] Imm Gran Abs Auto 0.15(H) 0.00 - 0.03 X10*3/uL [facility] Lymphocytes Absolute Auto 3.2 1.2 - 4.9 X10*3/uL [facility] Monocytes Absolute Auto 1.1 0.1 - 1.2 X10*3/uL [facility] Eosinophils Absolute Auto 0.4 0.0 - 0.4 X10*3/uL [facility] Basophils Absolute Auto 0.1 0.0 - 0.2 X10*3/uL [facility] NRBC Abs Auto 0.000 0.0 - 0.012 X10*3/uL [facility] Blood Venous blood specimen / Unknown 02/28/2025 11:16 AM EDT 02/28/2025 1:19 PM EDT us Veronika Wilkerson MD LAB BLOOD ORDERABLES Final Result Performing Organization Address City/[facility]/ZIP Co de Phone Number [facility] [address] [place] [phone] * Hepatitis C Antibody with Reflex to HCV, RNA, Quantitative, Real-Time PCR (02/28/2025 11:16 AM EDT) Hepatitis C Antibody Nonreactive Nonreactive [facility] Comment:Antibodies to HCV no t detected; does not exclude early acuteHCV infection. Blood Venous blood specimen / Unknown 02/28/2025 11:16 AM EDT 02/28/2025 1:28 PM EDT us Veronika Wilkerson MD LAB BLOOD ORDERABLES Final Result Performing Organization Address City/[facility]/ZIP Co de Phone Number [facility] [address] [place] [phone] * HIV-1/2 Antigen and Antibodies, Fourth Generation, with Reflexes (02/28/2025 11:16 AM EDT) HIV AB/AG Nonreactive Nonreactive [facility] Comment:HIV-1 p24 Ag and/or HIV-1/HIV-2 Ab not detected.A test result that is nonreactive does not exclude thepossibility of exposure to or infection with HIV-1 and/orHIV-2. Nonreactive results in this assay for individualswith prior exposure to HIV-1 and/or HIV-2 may be due toantigen and antibody levels that are below the limit ofdetection of this assay.The [employer] HIV Ag/Ab Combo assay result andsupplemental assay results should be interpreted inconjunction with the patient's clinical presentation,history and other laboratory results. If the results areinconsistent with clinical evidence, additional testing issuggested to confirm the result. Blood Venous blood specimen / Unknown 02/28/2025 11:16 AM EDT 02/28/2025 1:28 PM EDT us Veronika Wilkerson MD LAB BLOOD ORDERABLES Final Result [facility] [address] [place] [address] [phone] * Hemoglobin A1c (02/28/2025 11:16 AM EDT) Hemoglobin A1c 5.6 <6.0 % [facility] Comment:Hemoglobin A1C Refer ence Range Adults: 4.8 - 6.0 % Non diabetic: < 6.0 % Goal: < 7.0 %Additional Action Suggested: > 8.0 %Note: Hemoglobin A1c results are invalid for patients with abnormal amounts of HbF. Blood transfusions may impact the HbA1c concentration in the patient sample. Estimated Average Glucose 114 mg/dL [facility] Comment:eAG = Estimated ave rage glucose which is %A1C expressed asaverage glucose, using the formula of the [id number] Glucose study (ADAG), Diabetes Care, Vol.31,#8,Dec. 2007 Blood Venous blood specimen / Unknown 02/28/2025 11:16 AM EDT 02/28/2025 1:34 PM EDT us Veronika Wilkerson MD LAB BLOOD ORDERABLES Final Result Performing Organization Address [facility]/ZIP Co de Phone Number [facility] [address] [place] [phone] * (ABNORMAL) Lipid Panel, Standard (02/28/2025 11:16 AM EDT) Triglycerides 92 <150 mg/dL [facility] Comment:Desirable Triglyceri de: less than 150 mg/dLBorderline High Triglyceride 150-199 mg/dLHigh Triglyceride: 200-499 mg/dLVery High Triglyceride: greater than or equal to 5OO mg/dL Cholesterol 226(H) <200 mg/dL [facility] Comment:Desirable Cholestero l: less than 200 mg/dLBorderline High Cholesterol: 200-239 mg/dLHigh Cholesterol: greater than 239 mg/dL LDL Cholesterol Calculated 104(H) <100 mg/dL [facility] Comment:Desirable LDL: less than 100 mg/dLNear Optimal/Above Optimal LDL: 110- 129 mg/dLBorderline High LDL: 130-159 mg/dLHigh LDL: 160-189 mg/dLVery High LDL: greater than or equal to 190 mg/dL HDL Cholesterol 104 >40 mg/dL [facility] Comment:Desirable HDL: great er than 40 mg/dL Note: This HDL assay may give artificially low results in patients with liver disease. Blood Venous blood specimen / Unknown 02/28/2025 11:16 AM EDT 02/28/2025 1:28 PM EDT us Veronika Wilkerson MD LAB BLOOD ORDERABLES Final Result Performing Organization Address [facility]/ZIP Co de Phone Number [facility] [address] [place] [address] [phone] * (ABNORMAL) Comprehensive Metabolic Panel (02/28/2025 11:16 AM EDT) Sodium 137 135 - 145 mmol/L [facility] Potassium 4.2 3.3 - 5.1 mmol/L [facility] Chloride 105 96 - 108 mmol/L [facility] Carbon Dioxide 25 22 - 29 mmol/L [facility] Anion Gap 11(L) 12 - 20 [facility] Urea Nitrogen (BUN) 11 9 - 16 mg/dL [facility] Creatinine, Serum 0.67 0.5 - 1.4 mg/dL [facility] Estimated Glomerular Filt Rate >60 [facility] Comment:Chronic Kidney Disea se: Estimated GFR < 60 mL/min/1.98n4Pglbjg Kidney Disease: Estimated GFR < 15 mL/min/1.73m2 Glucose 83 60 - 115 mg/dL [facility] Calcium 9.5 8.4 - 10.2 mg/dL [facility] Bilirubin, Total 0.3 0.0 - 1.0 mg/dL [facility] Aspartate Amino Transferase 16 5 - 31 U/L [facility] Alanine Aminotransferase 14 0 - 31 U/L [facility] Total Protein 7.7 6.5 - 8.0 g/dL [facility] Albumin Level 4.1 3.5 - 5.0 g/dL [facility] Alkaline Phosphatase 69 39 - 117 U/L [facility] Blood Venous blood specimen / Unknown 02/28/2025 11:16 AM EDT 02/28/2025 1:28 PM EDT us Veronika Wilkerson MD LAB BLOOD ORDERABLES Final Result [facility] [address] [place] [phone] * BI Mammogram Diagnostic Tomosynthesis Bilateral (02/16/2024 10:35 AM EDT) Anatomical Region Laterality Modality Breast Bilateral Mammography 02/16/2024 10:3 5 AM EDT Narrative 02/16/2024 12:09 PM EDT [facility] [address] [place], [place] [address] Mammography Report Signed Patient: Nadiya Mccrary MR#: [id number] : 1975 Acct:[id number] Age/Sex: 48 / F ADM Date: 02/16/24 Loc: HO.MAMMO Attending Dr: Veronika Wilkerson MD Ordering Physician: Veronika Blanco MD Results: 2Benign Findings Date of Service: 02/16/24 Follow Up: 1 Year From [facility] Mammogram Procedure(s): MM tomosynthesis diagnostic BI Accession Number(s): [id number] cc: Veronika Blanco MD EXAMINATION: MM DIAGNOSTIC [...] 02/16/24 1206 DD/ 1035 TD/TT: 02/16/24 1054 Education Rep: Procedure Note Donotuseinterpreter, Image - 02/16/2024 [facility] [address] [place] [address] Mammography Report Signed Patient: Marie Mccrary#: [id number] : 1975Acct:[id number] Age/Sex: 48 / FADM Date: 02/16/24 Loc: HO.MAMMO Attending Dr: Veronika Wilkerson MD Ordering Physician: Veronika Blanco MDResults: 2Benign Findings Date of Service: 02/16/24Follow Up: 1 Year [facility] Mammogram Procedure(s): MM tomosynthesis diagnostic BI Accession Number(s): [id number] cc: Veronika Blanco MD EXAMINATION: MM DIAGNOSTIC [...] 02/16/24 1206 DD/ 1035 TD/TT: 02/16/24 1054 Education Rep: us Veronika Wilkerson MD IMG BI PROCEDURES [place] [facility] Result - Final * Hm Pap Smear (09/19/2022) Pap Negative for intraephithelial lesion or malignancy Negative for intraephithelial lesion or malignancy, Other [facility] HPV Undetected [facility] 09/19/2022 us Historical Provider HEALTH MAINTENANCE Final Result [facility] [address] [place] [phone] [phone] from Last 3 Months or Most Recently Relevant to Health Maintenance Insurance N [employer] [facility] C3 Care Teams Manager Wastewater Relationship Specialty Start Date End Date Veronika Blanco MD [address] [place] [phone] PCP - General Family Medicine 02/28/20
== END 2025-03-23 14:56 | disposition home or self-care (01) ==
LOC: HO.HWSM 10:21
PROVIDERS: PCP Internal Medicine; Visit Provider Advanced Practice Midwife
DX: Z01.419 Encounter for gynecological examination (general) (routine) without abnormal findings (principal); R32 Unspecified urinary incontinence; Z12.39 Encounter for other screening for malignant neoplasm of breast; D21.9 Benign neoplasm of connective and other soft tissue, unspecified
CPT/HCPCS: 99396

== ENCOUNTER 2025-03-24 11:58 | Outpatient (REF) | payer MEDICAID, SELFPAY | END 2025-03-24 11:59 | disposition home or self-care (01) | LOC: HO.MAMMO 11:58 | PROVIDERS: PCP Internal Medicine; Visit Provider Internal Medicine | DX: Z12.31 Encounter for screening mammogram for malignant neoplasm of breast (principal) | CPT/HCPCS: 77063; 77067 ==

== ENCOUNTER → 2025-03-24 13:00 | Outpatient (BNV) | payer MEDICAID, SELFPAY | PROVIDERS: PCP Internal Medicine; Visit Provider Internal Medicine | DX: Z12.31 Encounter for screening mammogram for malignant neoplasm of breast (principal) | CPT/HCPCS: 77063; 77067 ==